=== PATIENT | female | born 1930 | race Caucasian/White ===

== ENCOUNTER → 2016-12-13 | Outpatient (CLI) | payer MEDICARE ==
[2016-12-13 09:17] LABS: BASO # 0.1 K/mm3 (0.0-0.2); BASO % 0.9 % (0.0-1.0); EOS # 0.2 K/mm3 (0.0-0.50); EOS % 2.2 % (0.0-3.0); LARGE UNSTAINED CELL # 0.2 K/mm3 (0.0-0.4); LARGE UNSTAINED CELL % 2.3 % (0.0-4.0); LYMPH # 2.5 K/mm3 (1.5-4.5); MEAN CORPUSCULAR HEMOGLOBIN 30.2 pg (27.0-33.0); MEAN CORPUSCULAR VOLUME 91.4 fl (80.0-96.0); MONO # 0.5 K/mm3 (0.0-0.8); MONO % 6.7 % (0.0-5.0); NEUTROPHILS # 3.3 K/mm3 (1.8-7.7); NEUTROPHILS % 49.8 % (36.0-66.0); PLATELET COUNT, AUTOMATED 250 k/mm3 (150-450); RED CELL DISTRIBUTION WIDTH 13.2 % (11.5-14.5); WHITE BLOOD COUNT 6.6 K/mm3 (4.0-10.0)
[2016-12-13 10:04] LABS: ALBUMIN 3.4 GM/DL (3.2-5.2); ALBUMIN/GLOBULIN RATIO 1.13 (1.00-1.93); BILIRUBIN,TOTAL 0.3 MG/DL (0.2-1.0); CALCIUM LEVEL 9.2 MG/DL (8.8-10.2); CREATININE FOR GFR 1.14 MG/DL (0.55-1.02); GLOMERULAR FILTRATION RATE 48.1 (>32); POTASSIUM SERUM 3.9 MEQ/L (3.5-5.1); TOTAL PROTEIN 6.4 GM/DL (6.4-8.2)
== END ==
LOC: M WUC 08:17
PROVIDERS: ATTEND Family Medicine
DX: I10 Essential (primary) hypertension (principal); E78.2 Mixed hyperlipidemia; F33.1 Major depressive disorder, recurrent, moderate; Z72.0 Tobacco use

== ENCOUNTER → 2018-07-12 | Outpatient (REF) | payer MEDICARE ==
[~2018-07-12] MED LIST: ALB2.5NEB INH; ALBU0.63 INH; ALPR0.5T3 PO; K-TA10TA2 PO; LISI10TA4 PO; MAG400TA PO; PARO20TA3 PO; PARO30TA PO; TRIA37.53 PO; ZOCO40TA PO
== END ==
LOC: M LAB REF 15:24
PROVIDERS: ATTEND Physician Assistant
DX: N39.0 Urinary tract infection, site not specified (principal)

== ENCOUNTER 2018-08-03 20:10 | Emergency (ER) | payer MEDICARE ==
[~2018-08-03] VITALS: Ht 152.4 cm; Wt 59.1 kg
[2018-08-03] MEDS ORDERED: PARO40TA2 (20:21)
[2018-08-03] MEDS ORDERED: POTA1TAB23 (20:21)
[2018-08-03] MEDS ORDERED: LISI-538 (20:21)
[2018-08-03] MEDS ORDERED: SIMV40TA2 (20:21)
[2018-08-03] MEDS ORDERED: MAGN400T (20:21)
[2018-08-03] MEDS ORDERED: ALPRAZolam 0.5 MG TAB PO ONE ×3 (22:00→22:15)
[2018-08-03 22:28] VITALS: BP 171/82
== END 2018-08-03 22:31 | disposition home or self-care (01) ==
LOC: M ED 20:10
DX: F41.9 Anxiety disorder, unspecified (principal); Z76.0 Encounter for issue of repeat prescription; F17.200 Nicotine dependence, unspecified, uncomplicated

== ENCOUNTER → 2018-08-14 | Outpatient (CLI) | payer MEDICARE ==
[~2018-08-14] MED LIST changes: +LISI-538; +MAGN400T; +PARO40TA2; +POTA1TAB23; +SIMV40TA2
[2018-08-14 09:50] LABS: BASO # 0.1 10^3/uL (0.0-0.2); BASO % 0.7 % (0.0-1.0); EOS # 0.1 10^3/uL (0.0-0.50); HEMATOCRIT 43.6 % (36.0-47.0); HEMOGLOBIN 14.5 g/dl (12.0-15.5); LYMPH # 2.3 10^3/uL (1.5-4.5); LYMPH % 32.6 % (24.0-44.0); MEAN CORPUSCULAR HEMOGLOBIN 29.9 pg (27.0-33.0); MEAN CORPUSCULAR HGB CONC 33.3 g/dl (32.0-36.5); MEAN CORPUSCULAR VOLUME 89.9 fl (80.0-96.0); MONO # 0.6 10^3/uL (0.0-0.8); MONO % 8.3 % (0.0-5.0); NEUTROPHILS # 3.9 10^3/uL (1.8-7.7); NEUTROPHILS % 56.1 % (36.0-66.0); PLATELET COUNT, AUTOMATED 244 10^3/uL (150-450); RED BLOOD COUNT 4.85 10^6/uL (4.00-5.40)
[2018-08-14 10:20] LABS: ALBUMIN 3.6 GM/DL (3.2-5.2); BILIRUBIN,TOTAL 0.4 MG/DL (0.2-1.0); CALCIUM LEVEL 9.2 MG/DL (8.8-10.2); CHOLESTEROL RISK RATIO 3.066 (<5); CREATININE FOR GFR 1.05 MG/DL (0.55-1.30); FREE T4 0.98 NG/DL (0.76-1.46); GLOMERULAR FILTRATION RATE 52.8 (>32); MAGNESIUM LEVEL 2.5 MG/DL (1.8-2.4); POTASSIUM SERUM 3.8 MEQ/L (3.5-5.1); THYROID STIMULATING HORMONE 2.7 uIU/ML (0.358-3.740); TOTAL PROTEIN 6.5 GM/DL (6.4-8.2)
== END ==
LOC: M WUC 08:11
PROVIDERS: ATTEND Physician Assistant
DX: I10 Essential (primary) hypertension (principal)

== ENCOUNTER 2019-06-30 16:22 | Inpatient (IN) | payer MEDICARE ==
[~2019-06-30] VITALS: Ht 152.4 cm; Wt 56.0 kg
[~2019-06-30 16:22] MED LIST changes: -LISI-538; +LISI-538 PO; -MAGN400T; +MAGN400T3; -PARO40TA2; +PARO40TA2 PO; -SIMV40TA2; +SIMV40TA20
--- NOTE | 2019-06-30 17:32 | REPVR ---
PROCEDURE INFORMATION: Exam: CT Head Without Contrast Exam date and time: 06/30/2019 5:03 PM Age: 88 years old Clinical history: Injury or trauma; Fall; Initial encounter; Blunt trauma (contusions or hematomas) TECHNIQUE: Imaging protocol: Computed tomography of the head without contrast. Radiation optimization: All CT scans at this facility use at least one of these dose optimization techniques: automated exposure control; mA and/or kV adjustment per patient size (includes targeted exams where dose is matched to clinical indication); or iterative reconstruction. COMPARISON: No relevant prior studies available. FINDINGS: Brain: There is no acute intracranial hemorrhage, cerebral edema, or midline shift. Chronic microvascular ischemic changes are seen in the periventricular white matter. Age-related cerebral and cerebellar volume loss is present. Ventricles: Mild ex vacuo dilation of the lateral and third ventricles is noted. Bones/joints: No acute fracture. Sinuses: There is no acute sinusitis. Mastoid air cells: The mastoid air cells are clear. Orbits: The included orbital structures are unremarkable. Soft tissues: Unremarkable. Vasculature: Atherosclerotic calcifications are seen involving the cavernous carotid arteries. IMPRESSION: 1. No acute intracranial abnormality. 2. Atrophy and chronic deep white matter ischemic change. Electronically signed by: Hiram Renee On 06/30/2019 17:32:41 PM
--- NOTE | 2019-06-30 17:41 | REPVR ---
PROCEDURE INFORMATION: Exam: CT Cervical Spine Without Contrast Exam date and time: 06/30/2019 5:03 PM Age: 88 years old Clinical history: Injury or trauma; Fall; Initial encounter; Blunt trauma TECHNIQUE: Imaging protocol: Computed tomography images of the cervical spine without contrast. Radiation optimization: All CT scans at this facility use at least one of these dose optimization techniques: automated exposure control; mA and/or kV adjustment per patient size (includes targeted exams where dose is matched to clinical indication); or iterative reconstruction. COMPARISON: No relevant prior studies available. FINDINGS: Vertebrae: Bone mineralization is decreased, suggestive of osteopenia. There is no acute fracture. There is minimal retrolisthesis of C2 on C3 and C5 on C6. Minimal anterolisthesis of C4 on C5 and C7 on T1 is also noted. Discs/Spinal canal/Neural foramina: Severe degenerative changes of the cervical spine are present. There is no severe spinal canal stenosis. Multilevel neural foraminal narrowing from uncinate spurring and facet arthropathy is noted. Soft tissues: Unremarkable. Lungs: Lung apices are normal. Vasculature: Atherosclerotic calcifications are present at the carotid bifurcations. IMPRESSION: 1. No acute abnormality. 2. Chronic findings as discussed above. Electronically signed by: Hiram Renee On 06/30/2019 17:40:51 PM
[2019-06-30 17:57] LABS: BASO % 0.2 % (0.0-1.0); EOS % 0.1 % (0.0-3.0); HEMATOCRIT 25.9 % (36.0-47.0); HEMOGLOBIN 7.4 g/dl (12.0-15.5); LYMPH # 1.7 10^3/uL (1.5-5.0); LYMPH % 16.8 % (24.0-44.0); MEAN CORPUSCULAR HEMOGLOBIN 23.8 pg (27.0-33.0); MEAN CORPUSCULAR HGB CONC 28.6 g/dl (32.0-36.5); MEAN CORPUSCULAR VOLUME 83.3 fl (80.0-96.0); MONO # 0.6 10^3/uL (0.0-0.8); MONO % 6.3 % (0.0-5.0); NEUTROPHILS # 7.6 10^3/uL (1.5-8.5); NEUTROPHILS % 76.3 % (36.0-66.0); PLATELET COUNT, AUTOMATED 320 10^3/uL (150-450); RED BLOOD COUNT 3.11 10^6/uL (4.00-5.40); WHITE BLOOD COUNT 9.9 10^3/uL (4.0-10.0)
[2019-06-30 18:24] LABS: BILIRUBIN, URINE MANUAL NEGATIVE (NEGATIVE); GLUCOSE, URINE (UA) MANUAL NEGATIVE (NEGATIVE); KETONE, URINE MANUAL NEGATIVE (NEGATIVE); UROBILINOGEN, URINE MANUAL NORMAL (NORMAL)
[2019-06-30 18:26] LABS: RBC, URINE NONE SEEN /hpf (0-3)
[2019-06-30 18:27] LABS: AMORPHOUS SEDIMENT, URINE MOD AMOUNT (NEGATIVE); BACTERIA, URINE NONE SEEN; HYALINE CAST, URINE NONE SEEN /lpf (0-1); SQUAMOUS EPITHELIAL CELL URINE NONE SEEN /hpf (SMALL AMT)
[2019-06-30 18:28] LABS: ALBUMIN 3.2 GM/DL (3.2-5.2); ALT/SGPT 17 U/L (12-78); BILIRUBIN,DIRECT < 0.1 MG/DL (0.0-0.2); BILIRUBIN,TOTAL 0.3 MG/DL (0.2-1.0); BLOOD UREA NITROGEN 17 MG/DL (7-18); CALCIUM LEVEL 9.4 MG/DL (8.8-10.2); CARBON DIOXIDE LEVEL 28 MEQ/L (21-32); CHLORIDE LEVEL 110 MEQ/L (98-107); CK-MB VALUE MASS 2.5 NG/ML (<3.6); CPK CREATINE PHOSPHOKINASE 494 U/L (26-192); CREATININE FOR GFR 0.89 MG/DL (0.55-1.30); ETHYL ALCOHOL (ETHANOL) < 0.003 % (0.000-0.010); GLOMERULAR FILTRATION RATE > 60.0 (>32); GLUCOSE, FASTING 92 MG/DL (70-100); MB/CK RELATIVE INDEX 0.51 (< OR =4); POTASSIUM SERUM 3.8 MEQ/L (3.5-5.1); SODIUM LEVEL 144 MEQ/L (136-145); THYROID STIMULATING HORMONE 0.514 uIU/ML (0.358-3.740); TOTAL PROTEIN 6.2 GM/DL (6.4-8.2); TROPONIN I < 0.02 NG/ML (< 0.10)
--- NOTE | 2019-06-30 18:29 | REP ---
Chest x-ray: Two views. History: Trauma. Comparison study: July 21, 2018. Findings: EKG monitoring electrodes overlie the chest. The heart is not enlarged. Aorta is calcific and somewhat tortuous as before. Pleural angles are sharp. There is no evidence of pneumothorax or hydrothorax. Mediastinum is not widened. No rib or other fracture is appreciated. There is a granulomatous calcification in the left superior perihilar region unchanged. Impression: No active disease. Electronically Signed by Artem Gerard MD 06/30/2019 06:33 P
[2019-06-30] MEDS ORDERED: ASPI-261 PO (19:12)
--- NOTE | 2019-06-30 19:25 | HPEPDOC ---
[facility] Medical History & Physical Date of Admission Jun 30, 2019 Date of Service: Jun 30, 2019 Primary Care Physician: ESTEBAN HUTCHISON DO Attending Physician: ADELINE RYAN MD History and Physical TIME OF SERVICE: 9:10 PM CHIEF COMPLAINT: Altered mental status/fall HISTORY OF PRESENT ILLNESS: The patient is a poor historian. The majority of history was obtained from ER st [facility]. This is an 81-year-old female who was brought to the hospital by her granddaughter. Apparently a neighbor found the patient lying on the floor; the patient has a history of frequent falls. The patient couldn't remember exactly what happened. When asked how she is feeling she stated "right now I'm tired". She admits to having difficulties with walking for "for a day or so" and having to walk on her knees. Per discussion with the ER nurse taking care of her the patient is on alprazolam and based on the timing of the most recent prescription, the he should have more pills left in her bottle than she currently does. REVIEW OF SYSTEMS: Unable to obtain PAST MEDICAL/ SURGICAL HISTORY: Chronic hypertension. Anxiety/depression. Dyslipidemia. Status post left knee partial medial and lateral meniscectomy and excision of suprapatellar plica SOCIAL HISTORY: She reports smoking every day. She lives alone FAMILY HISTORY: She denies having family history of diabetes, cancer, or lung problems ALLERGIES: Please see below. HOME MEDICATIONS: Please see below. PHYSICAL EXAMINATION: VITAL SIGNS: Please see below. GEN: Slim build/ well developed/ NAD INTEGUMENT: not flushed/ not jaundice HEENT: normocephalic / atraumatic / mucus membranes dry/ sclera anicteric CVS: RRR/NMRG/ / radial pulses intact LUNGS: lungs are clear to auscultation bilaterally on room air ABDOMEN: bowel sounds are present / the abdomen is soft & not tender with palpation MSK/EXTREMITIES: range of motion intact in all 4 extremities NEURO: CN 2-12 are grossly intact / speech is not dysarthric PSYCH: alert and oriented / able to understand and follow most commands LABORATORY DATA: See below. IMAGING: CT of the head " IMPRESSION: 1. No acute intracranial abnormality. 2. Atrophy and chronic deep white matter ischemic change. CT cervical spine without contrast "IMPRESSION: 1. No acute abnormality. 2. Chronic findings as discussed above. " Chest x-ray "Impression: No active disease." ASSESSMENT: Ms. Rodriguez is an 88-year-old with a past medical history of chronic hypertension, anxiety, depression, and dyslipidemia will be admitted for evaluation of encephalopathy, syncope and acute anemia. PLAN: 1. Encephalopathy May be due to reaction to acute anemia vs adverse reaction to excessive alpraz olam vs hypertensive encephalopathy Plan: Admit to medical floor/ neurochecks every 8 hours /treat anemia and uncontrolled hypertension/hold alprazolam/ daytime team may consider ordering MRI of the brain, B12, B1, and TSH . If her mental status doesn't improve within the next day or so 2 Normocytic hypochromic anemia. Her baseline hemoglobin is around 13, today it has dropped to 7.4 The ER attending reported that Hemoccult was negative and ordered 2 units of PRBCs Plan: f/u hemoglobin after transfusion/follow up repeat stool occult, reticulocyte count, iron panel with ferritin, LDH and Haptoglobin 3. Falls/syncope? Possibly due to acute anemia vs arrhythmia vs TIA The troponin, UA, CT head and serum ethanol are unrevealing. Per discussion with nursing staff telemetry showed bigeminy and PVCs Plan: Telemetry / fall precautions/ f/u orthostats, BNP & stool occult / PT consult 4. Bigeminy and trigeminy. Plan: follow-up repeat EKG/cardiology consult for evaluation of bigeminy and t rigeminy 5. Uncontrolled hypertension. The patient's blood pressure was as high as 185/84 Plan: Continue lisinopril in the morning and add amlodipine at night 6. Elevated CPK, possibly due to mild rhabdo. UA is positive for blood Plan: Will not give additional IV fluids right now because her blood pressures elevated/trend CPK 7. Anxiety/depression. Plan: Hold alprazolam . Continue paroxetine 8. Tobacco abuse. Plan: Nicotine patch/smoking cessation education DVT prophylaxis with SCDs. Disposition likely home versus SNF placement after 1-2 midnight stay Vital Signs Vital Signs Date Time Temp Pulse Resp B/P (MAP) Pulse Ox O2 Delivery O2 Flow Rate FiO2 06/30/19 18:35 06/30/19 16:22 96.0 89 18 97 Room Air Laboratory Data Labs 24H Laboratory Tests 2 06/30/19 17:36: Immature Granulocyte % (Auto) 0.3, Neutrophils (%) (Auto) 76.3H, Lymphocytes (%) (Auto) 16.8L, Monocytes (%) (Auto) 6.3H, Eosinophils (%) (Auto) 0.1, Basophils (%) (Auto) 0.2, Neutrophils # (Auto) 7.6, Lymphocytes # (Auto) 1.7, Monocytes # (Auto) 0.6, Eosinophils # (Auto) 0.0, Basophils # (Auto) 0.0, Nucleated Red Blood Cells % (auto) 0.0, Anion Gap 6L, Glomerular Filtration Rate > 60.0, Calcium Level 9.4, Total Bilirubin 0.3, Direct Bilirubin < 0.1, Aspartate Amino Transf (AST/SGOT) 18, Alanine Aminotransferase (ALT/SGPT) 17, Alkaline Phosphatase 78, Total Creatine Kinase 494H, Creatine Kinase MB 2.5, Creatine Kinase MB Relative Index 0.51, Troponin I < 0.02, Total Protein 6.2L, Albumin 3.2, Albumin/Globulin Ratio 1.07, Thyroid Stimulating Hormone (TSH) 0.514, Ethyl Alcohol Level < 0.003 06/30/19 18:00: Urine Color (YULISSA) YELLOW, Urine Appearance (YULISSA) HAZYH, Urine pH (YULISSA) 5.0, Urine Specific [place] (YULISSA) 1.025, Bedside Urine Glucose (UA) NEGATIVE, Bedside Urine Ketones (LAB) NEGATIVE, Bedside Urine Blood POSITIVEH, Bedside Urine Nitrite (LAB) NEGATIVE, Bedside Urine Bilirubin (LAB) NEGATIVE, Bedside Urine Urobilinogen (LAB) NORMAL, Bedside Urine Leukocyte Esterase (L NEGATIVE, Urine Sediment Examination PERFORMED, Urine RBC NONE SEEN, Urine WBC NONE SEEN, Urine Squamous Epithelial Cells NONE SEEN, Urine Amorphous Sediment MOD AMOUNTH, Urine Bacteria NONE SEEN, Urine Hyaline Casts NONE SEEN 06/30/19 19:02: CBC/BMP Laboratory Tests 06/30/19 17:36 Home Medications Scheduled Ascorbic Acid (Vitamin C) 500 Mg Capsule, 1 CAP PO DAILY Cyanocobalamin (Vitamin B-12) (Vitamin B-12) 100 Mcg Tablet, 1 TAB PO DAILY Ferrous Sulfate (Ferrous Sulfate) 325 Mg Tablet.dr, 1 TAB PO DAILY Lisinopril (Lisinopril) 20 Mg Tab, 20 MG PO DAILY Nicotine (Nicotine Patch) 14 Mg Patch.td24, 1 PATCH TD QPM Pantoprazole Sodium (Pantoprazole Sodium) 40 Mg Tablet.dr, 40 MG PO DAILY Paroxetine HCl (Paroxetine HCl) 40 Mg Tab, 40 MG PO DAILY Prednisone (Prednisone) 10 Mg Tablet, 10 MG PO TAPER Take 4 tabs daily x 3 days, then 3 tabs daily x 3 days, then 2 tabs daily x 3 days, then 1 tab daily x 3 days and stop Scheduled PRN Albuterol Sulfate (Albuterol Sulfate) 2.5 Mg/0.5 Ml Neb, 2.5 MG INH Q4H PRN for SHORTNESS OF BREATH Alprazolam (Alprazolam) 0.5 Mg Tab, 0.5 MG PO TID PRN for ANXIETY Aspirin (Aspirin) 325 Mg Tablet, 650 MG PO DAILY PRN for PAIN Allergies Coded Allergies: No Known Allergies (Unverified , 06/30/19) A-FIB/CHADSVASC A-FIB History Current/History of A-Fib/PAF?: No Current PO Anticoag Therapy: No ADELINE RYAN MD Jun 30, 2019 19:25
[2019-06-30 19:45] LABS: PROTHROMBIN TIME 12.9 SECONDS (11.8-14.0)
[2019-06-30 19:46] LABS: PARTIAL THROMBOPLASTIN TIME 32.1 SECONDS (25.0-38.4)
[2019-06-30] MEDS ORDERED: ALBUTEROL SULFATE 2.5 MG/0.5 ML INH NEB SOLN INH PRN (21:30)
[2019-06-30] MEDS ORDERED: ASPIRIN 325 MG TAB PO PRN (21:30)
[2019-06-30 21:50] VITALS: BP 171/83
[2019-06-30] MEDS: NICOTINE 14 MG/24 HR TRANSDERMAL TD SCH (22:26)
[2019-06-30 23:05] LABS: MAGNESIUM LEVEL 2.1 MG/DL (1.8-2.4)
[2019-06-30 23:40] VITALS: BP 170/80
[2019-07-01] VITALS (16 sets, daily range): BP systolic 110–172; BP diastolic 64–87
[2019-07-01 02:24] LABS: FERRITIN 12 NG/ML (8-252); IRON (FE) 14 UG/DL (50-170); LDH LACTATE DEHYDROGENASE 256 U/L (84-246); PERCENT SATURATION 2.9 % (13.2-45.0); TOTAL IRON BINDING CAPACITY 484 UG/DL (250-450)
--- NOTE | 2019-07-01 08:11 | ECGEPIP ---
[facility] - ED Test Date: 2019-06-30 Pat Name: DARIO OLMOS Department: Room: [place] [address] Gender: Female Supervisor Instrument Maintenance: hilario : 1930 Requested By: DEE DEE Juarez Order Number: [id number] Reading MD: Osvaldo Alford Measurements Intervals [place] Rate: 79 P: 44 FL: 142 QRS: -16 QRSD: 91 T: 45 QT: 379 QTc: 435 Interpretive Statements SINUS RHYTHM WITH OCCASIONAL VENTRICULAR PREMATURE COMPLEXES POSSIBLE LEFT ATRIAL ENLARGEMENT POSSIBLE LEFT VENTRICULAR HYPERTROPHY POSSIBLE SEPTAL MYOCARDIAL INFARCTION, OF INDETERMINATE AGE NO PRIORS FOR COMPARISON Electronically Signed on 07-01-2019 8:11:37 EST by Osvaldo Alford
[2019-07-01 08:31] LABS: HEMATOCRIT 31.7 % (36.0-47.0); HEMOGLOBIN 9.8 g/dl (12.0-15.5); MEAN CORPUSCULAR HEMOGLOBIN 25.5 pg (27.0-33.0); MEAN CORPUSCULAR HGB CONC 30.9 g/dl (32.0-36.5); MEAN CORPUSCULAR VOLUME 82.6 fl (80.0-96.0); PLATELET COUNT, AUTOMATED 270 10^3/uL (150-450); RED BLOOD COUNT 3.84 10^6/uL (4.00-5.40); WHITE BLOOD COUNT 6.6 10^3/uL (4.0-10.0)
[2019-07-01 08:46] LABS: BLOOD UREA NITROGEN 16 MG/DL (7-18); CALCIUM LEVEL 8.6 MG/DL (8.8-10.2); CARBON DIOXIDE LEVEL 28 MEQ/L (21-32); CHLORIDE LEVEL 112 MEQ/L (98-107); CREATININE FOR GFR 0.88 MG/DL (0.55-1.30); GLOMERULAR FILTRATION RATE > 60.0 (>32); GLUCOSE, FASTING 91 MG/DL (70-100); POTASSIUM SERUM 3.3 MEQ/L (3.5-5.1); SODIUM LEVEL 145 MEQ/L (136-145)
[2019-07-01] MEDS ORDERED: LEVALBUTEROL 1.25 MG/0.5 ML CONCENTRATE NEB INH PRN (09:00)
[2019-07-01] MEDS ORDERED: IPRATROPIUM 0.02% SOLN 0.5MG/2.5 ML NEB INH PRN (09:00)
[2019-07-01 09:30] LABS: FERRITIN 7 NG/ML (8-252); IRON (FE) 95 UG/DL (50-170); PERCENT SATURATION 20.8 % (13.2-45.0); TOTAL IRON BINDING CAPACITY 456 UG/DL (250-450)
[2019-07-01] MEDS: methylPREDNISolone INJ 125 MG/2 ML VIAL (J2930) IV SCH ×2 (09:30→17:23)
[2019-07-01] MEDS: POTASSIUM CHLORIDE 10 MEQ SR TABLET PO SCH ×2 (09:30→20:52)
[2019-07-01] MEDS: PARoxetine 20 MG TAB PO SCH (09:31)
[2019-07-01] MEDS: lisinopriL 20 MG TAB PO SCH (09:31)
[2019-07-01] MEDS ORDERED: NS 500 ML IV ONE (10:00)
[2019-07-01] MEDS: LEVALBUTEROL 1.25 MG/0.5 ML CONCENTRATE NEB INH SCH ×4 (11:20→20:22)
[2019-07-01] MEDS: IPRATROPIUM 0.02% SOLN 0.5MG/2.5 ML NEB INH SCH ×3 (12:00→20:21)
[2019-07-01] MEDS: PANTOPRAZOLE 40MG TAB (PROTONIX) PO SCH (13:00)
[2019-07-01] MEDS ORDERED: POTASSIUM CHLORIDE 10 MEQ SR TABLET PO ONE (15:00)
--- NOTE | 2019-07-01 15:38 | IPN ---
DATE: 07/01/2019 The patient denies any bright red blood per rectum, melena, black tarry stools. She has been transfused 2 units red blood cells from admission of 7.4 to current hemoglobin of 9.8. She remains orthostatic but denies any chest pain, pressure, tightness, lightheadedness, dizziness or near syncope. Afebrile overnight. No complaints of shortness of breath. PHYSICAL EXAMINATION: VITAL SIGNS: Temperature 98, pulse 79, respiratory rate 18, blood pressure 135/65, 95% on 2 liters nasal cannula. GENERAL: The patient is awake, alert, oriented to person, answering questions appropriately. The patient does have a history of chronic hypertension, but appears to be well controlled. LUNGS: Diminished breath sounds with bilateral wheezing. The patient is not in tripod positioning. No conversational dyspnea. HEART: S1, S2. Sinus rhythm. No murmurs, rubs or gallops. ABDOMEN: Soft, nontender, nondistended. Positive bowel sounds. EXTREMITIES: No cyanosis or clubbing. LABORATORY DATA: White count 6.6, hemoglobin 9.8, hematocrit 31, platelet count 270. Sodium 145, potassium 3.3, chloride 112. ASSESSMENT AND PLAN: This is an 88-year-old female who came from home after the patient was found by a neighbor on the floor with history of recurrent falls, complaining of feeling tired. The patient was found to be anemic with no active gastrointestinal bleed. CURRENT ISSUES: 1. Symptomatic anemia with near syncopal episode at home. The patient has been transfused 2 units of red blood cells, awaiting hemoccult stool. Monitor for any active bleeding. 2. Hypokalemia. Supplemented potassium. 3. Syncope secondary to symptomatic anemia. No complaints of palpitations or history of arrhythmias in the past. 4. Abnormal electrocardiogram (EKG). Outpatient followup. Continue on telemetry. Monitor the patient's electrolytes. Check a 2-D dimensional echocardiogram due to recent syncope. 5. Recurrent falls. Check vitamin D. [facility]
--- NOTE | 2019-07-01 16:49 | ECGEPIP ---
[facility] Test Date: 2019-07-01 Pat Name: DARIO OLMOS Department: Room: [place] [address] Gender: Female Manager Beauty: ALEXANDER : 1930 Requested By: ADELINE RYAN Order Number: [id number] Reading MD: Ceasar Carpio Measurements Intervals [place] Rate: 85 P: 60 [place]: 141 QRS: -14 QRSD: 88 T: 40 QT: 301 QTc: 359 Interpretive Statements SINUS RHYTHM WITH OCCASIONAL VENTRICULAR PREMATURE COMPLEXES POSSIBLE LEFT ATRIAL ENLARGEMENT SEPTAL MYOCARDIAL INFARCTION, PROBABLY OLD Electronically Signed on 07-01-2019 16:49:35 EST by Ceasar Carpio
[2019-07-01 18:54] LABS: HEMATOCRIT 37.1 % (36.0-47.0); HEMOGLOBIN 10.8 g/dl (12.0-15.5)
[2019-07-01 19:12] LABS: MAGNESIUM LEVEL 1.9 MG/DL (1.8-2.4)
[2019-07-01 19:27] LABS: TOTAL 25(OH) VITAMIN D 32.4 NG/ML (30.0-100.0)
[2019-07-01 19:28] LABS: FOLATE 9.4 NG/ML (>5.4)
[2019-07-01] MEDS: NICOTINE 14 MG/24 HR TRANSDERMAL TD SCH (20:52)
[2019-07-02] MEDS: IPRATROPIUM 0.02% SOLN 0.5MG/2.5 ML NEB INH SCH ×6 (00:10→20:21)
[2019-07-02] MEDS: LEVALBUTEROL 1.25 MG/0.5 ML CONCENTRATE NEB INH SCH ×6 (00:10→20:21)
[2019-07-02] MEDS: methylPREDNISolone INJ 125 MG/2 ML VIAL (J2930) IV SCH (01:15)
[2019-07-02 06:00] VITALS: BP_SYST 126; BP_SYST 129; BP_SYST 130; BP_DIAS 51; BP_DIAS 54; BP_DIAS 56
[2019-07-02 06:21] LABS: HEMATOCRIT 31.4 % (36.0-47.0); HEMOGLOBIN 9.3 g/dl (12.0-15.5)
[2019-07-02 06:50] LABS: BLOOD UREA NITROGEN 19 MG/DL (7-18); CALCIUM LEVEL 9.1 MG/DL (8.8-10.2); CARBON DIOXIDE LEVEL 25 MEQ/L (21-32); CHLORIDE LEVEL 111 MEQ/L (98-107); CREATININE FOR GFR 0.91 MG/DL (0.55-1.30); GLOMERULAR FILTRATION RATE > 60.0 (>32); GLUCOSE, FASTING 143 MG/DL (70-100); POTASSIUM SERUM 3.9 MEQ/L (3.5-5.1); SODIUM LEVEL 143 MEQ/L (136-145)
[2019-07-02] MEDS ORDERED: PANT40TA3 PO (08:11)
[2019-07-02] MEDS ORDERED: NICO14PA TD (08:11)
[2019-07-02] MEDS ORDERED: PRED10TA2 PO (08:11)
[2019-07-02 09:15] VITALS: BP 124/82
[2019-07-02 09:50] VITALS: BP 122/62
[2019-07-02] MEDS: POTASSIUM CHLORIDE 10 MEQ SR TABLET PO SCH ×2 (11:00→20:00)
[2019-07-02] MEDS: PANTOPRAZOLE 40MG TAB (PROTONIX) PO SCH (11:03)
[2019-07-02] MEDS: lisinopriL 20 MG TAB PO SCH (11:05)
[2019-07-02] MEDS: PARoxetine 20 MG TAB PO SCH (11:06)
--- NOTE | 2019-07-02 12:24 | IPN ---
DATE: 07/02/2019 The patient's shortness of breath is much improved. Denies any chest pain, pressure, tightness, lightheadedness or dizziness. No bright red blood per rectum, melena or black tarry stools. The patient has not had a bowel movement. She has not passed a home safety physical therapy (PT) evaluation and would like to go home anyway. The family has been contacted and they agree that the patient is not safe for hospital discharge today due to her mobility issues. Temperature 98.5, pulse 100, respiratory rate 20, blood pressure 122/62, 92% on 2 liters nasal cannula. Generally awake, alert, oriented to herself, answering questions appropriately. The patient appears to be tremulous but no complaints of chills. Lungs are diminished but clear to auscultation. No wheezing, rales or rhonchi. Heart: S1, S2. Sinus rhythm. No murmurs, rubs or gallops. Abdomen soft, nontender, nondistended. Extremities: No cyanosis, clubbing or any pitting edema. LABORATORY DATA: 07/02/2019 hemoglobin 9.3, hematocrit 31, sodium 143, potassium 3.9, chloride 111, bicarbonate 25, BUN 19, creatinine 0.9, glucose 143. ASSESSMENT AND PLAN: This is an 88-year-old, DO NOT RESUSCITATE, DO NOT INTUBATE female from home who was found by a neighbor on the floor complaining of feeling tired and had a fall. The patient was found to be anemic with no active gastrointestinal (GI) bleed. 1. Symptomatic anemia most likely secondary to chronic iron deficiency with near syncopal episode at home. The patient was transfused 2 units of red blood cell (RBC) transfusion with no overt GI bleed. Currently on proton pump inhibitor (PPI). Hemoglobin/hematocrit (H/H) appeared to be stable. Low potassium. 2. Hypokalemia. Supplemented currently. 3. Syncope secondary to symptomatic anemia. No prior history of arrhythmias or palpitations in the past. 4. Abnormal EKG. Electrolytes are optimized. EKG has been reviewed with occasional premature ventricular contraction (PVC), questionable septal myocardial infarction (NV) probably old. DISPOSITION: Not stable for discharge. Await PT clearance. [facility]
[2019-07-02 14:00] VITALS: BP 145/74
[2019-07-02 18:00] VITALS: BP 177/72
[2019-07-02 18:20] LABS: HEMATOCRIT 33.5 % (36.0-47.0); HEMOGLOBIN 9.9 g/dl (12.0-15.5)
[2019-07-02 18:47] VITALS: BP 163/75
[2019-07-02] MEDS: NICOTINE 14 MG/24 HR TRANSDERMAL TD SCH (19:59)
--- NOTE | 2019-07-02 22:40 | ECHO ---
DATE OF PROCEDURE: 07/02/2019 Date of : 1930 Age: 88 REFERRING PHYSICIAN: Augusta Pennington MD PATIENT LOCATION: Room 4205 REASON FOR ECHOCARDIOGRAM: Syncope. 2D MEASUREMENTS: IVS: 1.1 cm LV: 5.2 cm LVPW: 1.2 cm LA: 3.7 cm Aorta: 3.0 cm RV: 2.8 cm IVC: 1.2 cm DOPPLER MEASUREMENTS: Peak velocity across the aortic valve: 1.6 m/s Peak velocity across the LVOT: 0.7 m/s Mitral E: 1.1, Mitral A: 1.2 with a ratio of 0.9 Maximum tricuspid valve velocity: 3.5 m/s 2D COMMENTS: 1. Normal left ventricular size, wall thickness, and normal global left ventricular systolic function. The estimated left ventricular systolic ejection fraction is 60-65%. 2. Normal left atrium. Normal right atrium and right ventricle noted in limited views. 3. The atrial septum appeared to be normal without evidence of defect or shunt. 4. Normal aortic root. 5. Trace to small pericardial effusion noted around the heart, no evidence of cardiac tamponade. 6. Mildly calcified aortic valve with normal leaflet excursion. Mildly calcified mitral annulus with normal anterior mitral valve leaflet motion. Normal tricuspid valve and pulmonic valve. The proximal pulmonary artery branches were not well visualized. 7. The inferior vena cava was normal in size, central venous pressure is most likely normal. DOPPLER: It detects moderate mitral regurgitation and mild to moderate tricuspid regurgitation. The calculated pulmonary artery systolic pressure varies between 40-50 mmHg. Abnormal relaxation pattern was noted across the mitral valve leaflets as well as the mitral valve annulus consistent with features of grade 1 left ventricular diastolic dysfunction. IMPRESSION 1. Normal global left ventricular systolic function. There are some features of grade 1 left ventricular diastolic dysfunction manifested by abnormal relaxation. 2. Aortic valve sclerosis with trivial aortic stenosis but no aortic regurgitation. 3. Mitral annulus calcification with moderate mitral regurgitation. 4. Mild to moderate tricuspid regurgitation with moderate pulmonary hypertension. 5. Trace to small pericardial effusion, no evidence of cardiac tamponade.
[2019-07-03] MEDS: LEVALBUTEROL 1.25 MG/0.5 ML CONCENTRATE NEB INH SCH ×4 (04:00→11:17)
[2019-07-03] MEDS: IPRATROPIUM 0.02% SOLN 0.5MG/2.5 ML NEB INH SCH ×4 (04:00→11:17)
[2019-07-03 06:00] VITALS: BP 133/89
[2019-07-03 06:14] LABS: HEMATOCRIT 34.4 % (36.0-47.0); HEMOGLOBIN 10.5 g/dl (12.0-15.5)
[2019-07-03] MEDS ORDERED: MOM 30ML SUSPENSION UDC PO PRN (08:00)
[2019-07-03] MEDS ORDERED: MIRALAX *UNIT DOSE* 17GM PACKET PO SCH (09:00)
[2019-07-03] MEDS ORDERED: SENOKOT S TAB PO SCH (09:00)
[2019-07-03 09:15] VITALS: BP 138/78
[2019-07-03] MEDS: POTASSIUM CHLORIDE 10 MEQ SR TABLET PO SCH (10:25)
[2019-07-03] MEDS: PARoxetine 20 MG TAB PO SCH (10:25)
[2019-07-03 10:26] VITALS: BP 138/78
[2019-07-03] MEDS: lisinopriL 20 MG TAB PO SCH (10:26)
[2019-07-03] MEDS: PANTOPRAZOLE 40MG TAB (PROTONIX) PO SCH (10:27)
[2019-07-03] MEDS ORDERED: VITA500C24 PO (12:21)
[2019-07-03] MEDS ORDERED: FERR325T3 PO (12:21)
[2019-07-03] MEDS ORDERED: B-12100T2 PO (12:26)
[2019-07-03 14:00] VITALS: BP 135/82
--- NOTE | 2019-07-03 19:52 | DSES ---
DATE OF ADMISSION: 06/30/2019 DATE OF DISCHARGE: 07/03/2019 PRIMARY DISCHARGE DIAGNOSES: 1. Syncope. 2. Symptomatic anemia 3. Chronic obstructive pulmonary disease exacerbation. 4. Hypokalemia. 5. Iron deficiency anemia. 6. Mild to moderate tricuspid regurgitation with moderate pulmonary hypertension. 7. Trivial aortic stenosis, moderate mitral regurgitation. 8. Grade 1 left ventricular diastolic dysfunction. 9. B12 deficiency. 10. Active tobacco use. Tobacco cessation counseling has been provided. DISCHARGE MEDICATIONS: - prednisone taper - albuterol inhaled every 4 as needed - alprazolam 0.5 three times a day as needed - aspirin 650 daily as needed for pain - lisinopril 20 daily - paroxetine 40 daily - Protonix 40 daily - nicotine patch 14 mg daily - ferrous sulfate 325 daily - vitamin C 500 daily PROCEDURES DURING THIS ADMISSION: None. TRANSFUSIONS: Two units blood transfusion. HOSPITAL COURSE: This is an 88-year-old female who was found on the ground by a neighbor, brought to the hospital by her granddaughter. Patient could not recall what happened but complained of feeling very tired, having difficulty ambulating for a day or so. In the emergency room (ER) she was found to be severely anemic with hemoglobin of 7.4., hematocrit of 25.9. Blood pressure was stable at 173/79. CT of the head 06/30/2019 showed no acute intracranial abnormality. Patient denies bright red blood per rectum, melena, black tarry stools. Does not remember any previous colonoscopies. Did not want any workup. She was transfused 2 units of blood with subsequent improvement, a hemoglobin of 9.8, which was well maintained the entire admission, to a discharge hemoglobin of 10.5, hematocrit of 34.4. Patient's balance was poor, and per physical therapy she was not safe for hospital discharge on July 02. Patient was kept in the hospital until July 03, when she was cleared by physical therapy. Patient did not have any bowel movements during this admission. Refused any bowel regimen until day of discharge. She had episodes of low potassium, which were supplemented. For evaluation of syncopal episode, CT cervical spine showed no neck injuries. Chronic changes are noted. Echocardiogram showed trivial aortic stenosis, moderate mitral regurgitation, and moderate tricuspid regurgitation. Ejection fraction 60-65%. Patient is discharged in stable condition. PHYSICAL EXAMINATION: Temperature 97.6, pulse 70, respiratory rate 24, blood pressure 138/78, 94% on room air. GENERAL: Awake, alert, oriented to person and place. Disoriented to time. Anicteric sclerae. No jaundice. No pallor. No cervical lymphadenopathy, thyromegaly, or jugular venous distention (JVD). Dry mucous membranes. LUNGS: Clear to auscultation. No wheezes or rales. HEART: S1, S2, sinus rhythm. Systolic ejection murmur at the left lower sternal border. ABDOMEN: Soft, nontender, nondistended. Positive bowel sounds. EXTREMITIES: No clubbing, cyanosis, or any pitting edema. LABORATORY DATA: On discharge, white count 6.6, hemoglobin 10.5, hemoglobin 34.4, platelet count 270. Sodium 143, potassium 3.9, chloride 111, bicarbonate 25, BUN 19, creatinine 0.91, glucose 143. Total CK 301. B12 of 119. Vitamin D 32.4. Folate 9.4. IMAGING STUDIES: On 06/30/2019, CT head: No acute intracranial pathology. Chest x-ray: No active disease. CT cervical spine: No acute abnormality. TIME SPENT ON DISCHARGE: 30 minutes. [facility]
== END 2019-07-03 17:01 | disposition home health service (06) | DRG 812 ==
LOC: M ED 16:22 → M ED INP 19:21 → M MSPAV 21:50
PROVIDERS: ADMIT Internal Medicine; ATTEND General Practice
PROC: 30233N1 Transfusion of Nonautologous Red Blood Cells into Peripheral Vein, Percutaneous Approach (ICD-10-PCS; principal; 2019-07-01)
DX: D50.9 Iron deficiency anemia, unspecified (principal); J44.1 Chronic obstructive pulmonary disease with (acute) exacerbation; G93.40 Encephalopathy, unspecified; D59.4 Other nonautoimmune hemolytic anemias; R29.6 Repeated falls; I11.9 Hypertensive heart disease without heart failure; F32.9 Major depressive disorder, single episode, unspecified; F41.9 Anxiety disorder, unspecified; E78.5 Hyperlipidemia, unspecified; F17.210 Nicotine dependence, cigarettes, uncomplicated; R55 Syncope and collapse; E87.6 Hypokalemia; I27.20 Pulmonary hypertension, unspecified; I08.3 Combined rheumatic disorders of mitral, aortic and tricuspid valves; E53.8 Deficiency of other specified B group vitamins

== ENCOUNTER 2019-07-16 20:10 | Emergency (ER) | payer MEDICARE ==
[~2019-07-16] VITALS: Ht 152.4 cm; Wt 56.8 kg
[~2019-07-16 20:10] MED LIST changes: +ASPI-261 PO; +B-12100T2 PO; +FERR325T3 PO; +NICO14PA TD; +PANT40TA3 PO; +PRED10TA2 PO; +VITA500C24 PO
[2019-07-16] MEDS ORDERED: traMADol 50 MG TAB PO ONE (23:00)
[2019-07-16 23:56] LABS: BASO % 0.2 % (0.0-1.0); EOS % 0.2 % (0.0-3.0); HEMATOCRIT 39.3 % (36.0-47.0); HEMOGLOBIN 11.6 g/dl (12.0-15.5); LYMPH % 5.5 % (24.0-44.0); MEAN CORPUSCULAR HEMOGLOBIN 24.5 pg (27.0-33.0); MEAN CORPUSCULAR HGB CONC 29.5 g/dl (32.0-36.5); MEAN CORPUSCULAR VOLUME 82.9 fl (80.0-96.0); MONO # 1.1 10^3/uL (0.0-0.8); MONO % 6.2 % (0.0-5.0); NEUTROPHILS # 15.7 10^3/uL (1.5-8.5); NEUTROPHILS % 87.4 % (36.0-66.0); PLATELET COUNT, AUTOMATED 434 10^3/uL (150-450); RED BLOOD COUNT 4.74 10^6/uL (4.00-5.40); WHITE BLOOD COUNT 17.9 10^3/uL (4.0-10.0)
--- NOTE | 2019-07-17 00:06 | REPVR ---
PROCEDURE INFORMATION: Exam: CT Abdomen And Pelvis Without Contrast Exam date and time: 07/16/2019 10:52 PM Age: 88 years old Clinical indication: Abdominal pain; Localized; Lower; Additional info: Lbp TECHNIQUE: Imaging protocol: Computed tomography of the abdomen and pelvis without contrast. Radiation optimization: All CT scans at this facility use at least one of these dose optimization techniques: automated exposure control; mA and/or kV adjustment per patient size (includes targeted exams where dose is matched to clinical indication); or iterative reconstruction. COMPARISON: CR Hip, 1 view 07/21/2018 4:50 PM FINDINGS: Lungs: Minimal bibasilar interstitial prominence and fibro-atelectatic change. There is question of minimal left lower lobe infiltrate. Mediastinum: Moderate hiatal hernia. Liver: Normal. No mass. Gallbladder and bile ducts: There are several small gallstones in the gallbladder. Pancreas: Normal. No ductal dilation. Spleen: Normal. No splenomegaly. Adrenals: Normal. No mass. Kidneys and ureters: There are bilateral renal cysts measuring up to 2.6 cm on the right. Stomach and bowel: There is colonic diverticulosis without evidence of diverticulitis. Appendix: There are no changes of appendicitis. A normal appendix is not seen. Intraperitoneal space: Unremarkable. No free air. No significant fluid collection. Vasculature: There is moderate atherosclerotic calcification of the abdominal aorta with extension into the iliac arteries. Lymph nodes: Unremarkable. No enlarged lymph nodes. Bladder: The urinary bladder is decompressed but appears grossly normal. Reproductive: Status post hysterectomy. Bones/joints: Unremarkable. No acute fracture. There are degenerative disc changes of the lumbar spine with facet arthropathy. Soft tissues: Unremarkable. IMPRESSION: 1. Moderate hiatal hernia. 2. Minimal bibasilar interstitial prominence and fibro-atelectatic change and question of minimal left lower lobe infiltrate. 3. Cholelithiasis with several small gallstones. 4. Colonic diverticulosis without diverticulitis. 5. Status post hysterectomy. 6. Degenerative disc changes and facet arthropathy of the lumbar spine. Electronically signed by: Juan Carlos Myles On 07/17/2019 00:06:25 AM
--- NOTE | 2019-07-17 00:15 | REPVR ---
PROCEDURE INFORMATION: Exam: CT Lumbar Spine Without Contrast Exam date and time: 07/16/2019 10:52 PM Age: 88 years old Clinical indication: Low back pain; Additional info: Lbp TECHNIQUE: Imaging protocol: Computed tomography images of the lumbar spine without contrast. Radiation optimization: All CT scans at this facility use at least one of these dose optimization techniques: automated exposure control; mA and/or kV adjustment per patient size (includes targeted exams where dose is matched to clinical indication); or iterative reconstruction. COMPARISON: No relevant prior studies available. FINDINGS: Vertebrae: Minimal dextroscoliosis of L4 and levoscoliosis at L1. L1-L2: Degenerative vacuum phenomenon with minimal diffuse bulging disc and preservation of posterior concavity. No spinal or foraminal stenosis. L2-L3: Moderate interspace narrowing with vacuum phenomenon and slight retrolisthesis and minimal diffuse bulge and minimal facet arthropathy. No significant spinal stenosis. There is borderline right neural foraminal stenosis. L3-L4: Slight interspace narrowing with slight retrolisthesis and minimal diffuse bulge with loss of posterior concavity. There is minimal facet arthropathy, particularly on the left with borderline spinal stenosis and no significant foraminal stenosis. L4-L5: Moderate interspace narrowing with mild facet arthropathy, left greater than right. There is borderline spinal stenosis with low normal size of the left neural foramen. L5-S1: Mild facet arthropathy with no significant spinal or foraminal stenosis. Stomach and bowel: Colonic diverticulosis. Vasculature: There is moderate atherosclerotic calcification of the abdominal aorta with extension into the iliac arteries. Soft tissues: Unremarkable. IMPRESSION: 1. Scoliosis with multilevel degenerative changes. There is borderline spinal stenosis at L3-L4 and L4-L5 and some borderline neural foraminal stenosis. 2. Otherwise negative CT lumbar spine. Electronically signed by: Juan Carlos Myles On 07/17/2019 00:15:32 AM
[2019-07-17 00:22] LABS: ALBUMIN 3.3 GM/DL (3.2-5.2); BILIRUBIN,DIRECT 0.1 MG/DL (0.0-0.2); BILIRUBIN,TOTAL 0.6 MG/DL (0.2-1.0); CALCIUM LEVEL 9.2 MG/DL (8.8-10.2); CREATININE FOR GFR 1.01 MG/DL (0.55-1.30); GLOMERULAR FILTRATION RATE 55.1 (>32); TOTAL PROTEIN 6.6 GM/DL (6.4-8.2)
[2019-07-17] MEDS ORDERED: ISOVUE-370 76% 100ML VIAL (Q9967) As Ordered ONE (00:59)
--- NOTE | 2019-07-17 01:41 | REPVR ---
PROCEDURE INFORMATION: Exam: CT Angiography Chest With Contrast Exam date and time: 07/17/2019 12:48 AM Age: 88 years old Clinical indication: Pain; Other: Back; Additional info: Eval for pe TECHNIQUE: Imaging protocol: Computed tomographic angiography of the chest with intravenous contrast. 3D rendering: MIP and/or 3D reconstructed images were created by the technologist. Radiation optimization: All CT scans at this facility use at least one of these dose optimization techniques: automated exposure control; mA and/or kV adjustment per patient size (includes targeted exams where dose is matched to clinical indication); or iterative reconstruction. Contrast material: ISO; Contrast volume: 75 ml; Contrast route: AC; COMPARISON: CR Chest, 1 view 07/17/2019 12:23 AM FINDINGS: Pulmonary arteries: The main pulmonary artery measures 30 mm. There is minimal pulmonary embolism extending into the lingula. Aorta: The ascending thoracic aorta measures 32 mm. Lungs: Minimal bibasilar fibro-atelectatic change and question of minimal lower lobe infiltrates. Pleural space: Unremarkable. No pneumothorax. No pleural effusion. Heart: Unremarkable. No cardiomegaly. No pericardial effusion. Mediastinum: Moderate hiatal hernia. Kidneys and ureters: There is a right renal cyst measuring 2.6 cm. Lymph nodes: Calcified left hilar nodes. Bones/joints: Unremarkable. No acute fracture. Soft tissues: Unremarkable. IMPRESSION: 1. Minimal pulmonary embolism extending into the lingula. 2. Minimal bibasilar fibro-atelectatic change and question of minimal bilateral lower lobe infiltrates. 3. Minimal evidence of old granulomatous disease. 4. Moderate hiatal hernia. Electronically signed by: Juan Carlos Myles On 07/17/2019 01:40:53 AM
[2019-07-17] MEDS ORDERED: APIXABAN 5 MG TAB (ELIQUIS) PO ONE (02:00)
[2019-07-17] MEDS ORDERED: ELIQ5TAB PO ×2 (02:08→02:10)
[2019-07-17] MEDS ORDERED: POTASSIUM CHLORIDE 10 MEQ SR TABLET PO ONE (02:15)
[2019-07-17 02:45] VITALS: BP 159/73
--- NOTE | 2019-07-17 07:39 | REP ---
Clinical: Chest and back pain . Comparison: 07/21/2018 . Findings: The mediastinum and cardiac silhouette are stable and within normal limits for portable technique. The lung reyes demonstrate chronic changes without acute consolidation, effusion, or pneumothorax. Skeletal structures are intact. Impression: No acute cardiopulmonary process appreciated. Electronically Signed by Margarito Estrada MD 07/17/2019 07:30 A
[2019-07-17] MEDS ORDERED: SIMV40TA20 PO (13:02)
== END 2019-07-17 03:16 | disposition home or self-care (01) ==
LOC: M ED 20:10
DX: I26.99 Other pulmonary embolism without acute cor pulmonale (principal); M54.5 Low back pain; I10 Essential (primary) hypertension; K21.9 Gastro-esophageal reflux disease without esophagitis; J44.9 Chronic obstructive pulmonary disease, unspecified; D50.9 Iron deficiency anemia, unspecified; F17.200 Nicotine dependence, unspecified, uncomplicated; K44.9 Diaphragmatic hernia without obstruction or gangrene; K80.20 Calculus of gallbladder without cholecystitis without obstruction; K57.30 Diverticulosis of large intestine without perforation or abscess without bleeding; M51.36 Other intervertebral disc degeneration, lumbar region; M41.86 Other forms of scoliosis, lumbar region; Z79.82 Long term (current) use of aspirin; Z79.01 Long term (current) use of anticoagulants; Z79.899 Other long term (current) drug therapy
CPT/HCPCS: 71045; 71275; 72131; 74176; 80048; 80076; 81001; 83690; 85025; 99284; 99285; Q9967

== ENCOUNTER 2019-07-17 12:34 | Emergency (ER) | payer MEDICARE ==
[~2019-07-17] VITALS: Ht 152.4 cm; Wt 56.8 kg
[~2019-07-17 12:34] MED LIST changes: +ELIQ5TAB PO
[2019-07-17] MEDS ORDERED: SIMV40TA20 PO (13:02)
[2019-07-17 16:05] VITALS: BP 183/84
== END 2019-07-17 16:17 | disposition home or self-care (01) ==
LOC: M ED 12:34
DX: Z91.14 Patient's other noncompliance with medication regimen (principal); I26.99 Other pulmonary embolism without acute cor pulmonale; I10 Essential (primary) hypertension; E78.5 Hyperlipidemia, unspecified; J44.9 Chronic obstructive pulmonary disease, unspecified; F32.9 Major depressive disorder, single episode, unspecified; F17.200 Nicotine dependence, unspecified, uncomplicated; Z79.01 Long term (current) use of anticoagulants; Z79.82 Long term (current) use of aspirin; Z79.899 Other long term (current) drug therapy

== ENCOUNTER 2019-07-22 16:05 | Emergency (ER) | payer MEDICARE ==
[~2019-07-22 16:05] MED LIST changes: +SIMV40TA20 PO
[2019-07-22 16:45] LABS: BASO % 0.5 % (0.0-1.0); EOS % 0.4 % (0.0-3.0); HEMATOCRIT 37.7 % (36.0-47.0); HEMOGLOBIN 11.4 g/dl (12.0-15.5); LYMPH # 1.3 10^3/uL (1.5-5.0); LYMPH % 16.4 % (24.0-44.0); MEAN CORPUSCULAR HEMOGLOBIN 24.8 pg (27.0-33.0); MEAN CORPUSCULAR HGB CONC 30.2 g/dl (32.0-36.5); MONO # 0.7 10^3/uL (0.0-0.8); MONO % 8.6 % (0.0-5.0); NEUTROPHILS # 5.7 10^3/uL (1.5-8.5); NEUTROPHILS % 73.8 % (36.0-66.0); PLATELET COUNT, AUTOMATED 339 10^3/uL (150-450); WHITE BLOOD COUNT 7.7 10^3/uL (4.0-10.0)
--- NOTE | 2019-07-22 16:49 | REP ---
Clinical: Chest pain . Comparison: 07/17/2019 . Findings: The mediastinum and cardiac silhouette are stable and within normal limits for portable technique. The lung reyes are clear without acute consolidation, effusion, or pneumothorax. Skeletal structures are intact. Impression: No focal consolidation. Electronically Signed by Margarito Estrada MD 07/22/2019 04:41 P
[2019-07-22 17:09] LABS: BLOOD UREA NITROGEN 10 MG/DL (7-18); CALCIUM LEVEL 8.8 MG/DL (8.8-10.2); CARBON DIOXIDE LEVEL 27 MEQ/L (21-32); CHLORIDE LEVEL 108 MEQ/L (98-107); CK-MB VALUE MASS < 1.0 NG/ML (<3.6); CPK CREATINE PHOSPHOKINASE 33 U/L (26-192); CREATININE FOR GFR 0.96 MG/DL (0.55-1.30); GLOMERULAR FILTRATION RATE 58.4 (>32); GLUCOSE, FASTING 96 MG/DL (70-100); MB/CK RELATIVE INDEX 3.03 (< OR =4); SODIUM LEVEL 142 MEQ/L (136-145); TROPONIN I < 0.02 NG/ML (< 0.10)
[2019-07-22] MEDS ORDERED: GI COCKTAIL 50ML BTL(HYOSCYAMINE/MAALOX/LIDOCAINE VISCOUS)(1:3:1) PO ONE (17:15)
[2019-07-22] MEDS ORDERED: POTASSIUM CHLORIDE 10 MEQ SR TABLET PO ONE (17:15)
[2019-07-22 18:15] VITALS: BP 179/93
--- NOTE | 2019-07-23 07:53 | ECGEPIP ---
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
== END 2019-07-22 18:38 | disposition home or self-care (01) ==
LOC: M ED 16:05 → EDBD 16:05 → M ED 18:38
DX: F41.9 Anxiety disorder, unspecified (principal); I48.91 Unspecified atrial fibrillation; I10 Essential (primary) hypertension; E78.5 Hyperlipidemia, unspecified; J44.9 Chronic obstructive pulmonary disease, unspecified; Z95.1 Presence of aortocoronary bypass graft; F17.200 Nicotine dependence, unspecified, uncomplicated; Z82.49 Family history of ischemic heart disease and other diseases of the circulatory system; Z79.01 Long term (current) use of anticoagulants; Z79.82 Long term (current) use of aspirin; Z79.899 Other long term (current) drug therapy

== ENCOUNTER 2019-07-28 13:18 | Inpatient (IN) | payer MEDICARE ==
[~2019-07-28] VITALS: Ht 167.6 cm; Wt 60.7 kg
[2019-07-28 14:06] LABS: BASO % 0.4 % (0.0-1.0); EOS # 0.1 10^3/uL (0.0-0.5); EOS % 2.6 % (0.0-3.0); HEMATOCRIT 40.5 % (36.0-47.0); HEMOGLOBIN 11.8 g/dl (12.0-15.5); LYMPH # 1.1 10^3/uL (1.5-5.0); MEAN CORPUSCULAR HEMOGLOBIN 24.6 pg (27.0-33.0); MEAN CORPUSCULAR HGB CONC 29.1 g/dl (32.0-36.5); MEAN CORPUSCULAR VOLUME 84.6 fl (80.0-96.0); MONO # 0.6 10^3/uL (0.0-0.8); MONO % 11.2 % (0.0-5.0); NEUTROPHILS # 3.6 10^3/uL (1.5-8.5); NEUTROPHILS % 65.4 % (36.0-66.0); PLATELET COUNT, AUTOMATED 210 10^3/uL (150-450); RED BLOOD COUNT 4.79 10^6/uL (4.00-5.40); WHITE BLOOD COUNT 5.5 10^3/uL (4.0-10.0)
[2019-07-28] MEDS ORDERED: ALBUTEROL SULFATE 2.5 MG/0.5 ML INH NEB SOLN INH ONE (14:30)
[2019-07-28] MEDS ORDERED: IPRATROPIUM 0.5MG/ALBUTEROL 2.5MG INH SOL UD 3ML (DUONEB)(J7620) NEB ONE (14:30)
[2019-07-28 14:38] LABS: ALBUMIN 3.2 GM/DL (3.2-5.2); ALT/SGPT 11 U/L (12-78); BILIRUBIN,TOTAL 0.3 MG/DL (0.2-1.0); BLOOD UREA NITROGEN 21 MG/DL (7-18); CALCIUM LEVEL 9.5 MG/DL (8.8-10.2); CARBON DIOXIDE LEVEL 26 MEQ/L (21-32); CHLORIDE LEVEL 111 MEQ/L (98-107); CK-MB VALUE MASS < 1.0 NG/ML (<3.6); CPK CREATINE PHOSPHOKINASE 22 U/L (26-192); CREATININE FOR GFR 0.97 MG/DL (0.55-1.30); GLOMERULAR FILTRATION RATE 57.7 (>32); GLUCOSE, FASTING 84 MG/DL (70-100); MB/CK RELATIVE INDEX 4.55 (< OR =4); NT-PRO BNP 123 PG/ML (<450); SODIUM LEVEL 144 MEQ/L (136-145); TOTAL PROTEIN 6.1 GM/DL (6.4-8.2); TROPONIN I < 0.02 NG/ML (< 0.10)
--- NOTE | 2019-07-28 15:06 | REP ---
Portable chest x-ray: Single view. History: Hypoxia. Comparison study: July 22, 2019. Findings: Monitoring electrodes overlie the chest. There is linear fibrosis versus plate-like atelectasis in the right base. Cardiomegaly is observed unchanged. Pulmonary vasculature is not increased. Impression: Cardiomegaly. Plate-like atelectasis versus fibrosis right base. No acute infiltrate. Electronically Signed by Artem Gerard MD 07/28/2019 05:52 P
[2019-07-28] MEDS ORDERED: ISOVUE-370 76% 100ML VIAL (Q9967) As Ordered ONE (15:26)
[2019-07-28 15:30] LABS: APPEARANCE, URINE CLEAR (CLEAR); BACTERIA, URINE AUTO NEGATIVE (NEGATIVE); BILIRUBIN, URINE AUTO NEGATIVE (NEGATIVE); BLOOD, URINE BLOOD NEGATIVE (NEGATIVE); CALCIUM OXALATE CRYSTALS SMALL; COLOR, URINE YELLOW (YELLOW); GLUCOSE, URINE (UA) AUTO NEGATIVE (NEGATIVE); KETONE, URINE AUTO NEGATIVE (NEGATIVE); LEUKOCYTE ESTERASE, URINE AUTO NEGATIVE (NEGATIVE); NITRITE, URINE AUTO NEGATIVE (NEGATIVE); PROTEIN, URINE AUTO NEGATIVE (NEGATIVE); RBC, URINE AUTO 5 /HPF (0-3); SPECIFIC GRAVITY URINE AUTO 1.024 (1.002-1.035); SQUAMOUS EPITHELIAL CELL UR AU 1 /HPF (0-6); UROBILINOGEN, URINE AUTO 0.2 mg/dL (0.0-2.0); WBC, URINE AUTO 1 /HPF (0-3)
[2019-07-28 15:54] LABS: MYOGLOBIN 43 NG/ML (13-71)
--- NOTE | 2019-07-28 16:13 | REP ---
CT pulmonary angiogram: With IV contrast. History: Hypoxia. Comparison studies: Comparison study July 17, 2019. Contrast dose: 75 ML of Isovue [address] technique: Helical scanning is acquired and overlapping 1.5 mm and contiguous 3 mm axial images are reformatted. In addition, maximum intensity projection and multiplanar re-formation images are generated in sagittal and coronal imaging projections. CT pulmonary angiographic findings: There is good opacification in the pulmonary arterial tree. No vessel cutoff or filling defect is seen to suggest pulmonary embolism. There is heavy vascular calcification. There is no evidence of aortic aneurysm or dissection. No pleural or pericardial effusion is seen. A moderate size hiatal hernia is noted. There are mild emphysematous changes in the upper lobes. There are fairly extensive inspissated endobronchial secretions in the right lower lobe and there is consolidation and some atelectasis in the right lower lobe peripherally. Partial filling of the right lower lobe central bronchus. No endobronchial mass lesion is seen. This is a new finding from the recent prior study of 07/17/2019. There is a calcified granuloma in the left upper lobe. There are opaque gallstones in the gallbladder and there is a cyst in the upper pole right kidney. Impression: Retained inspissated endobronchial secretions throughout much of the in the bronchial tree in the right lower lobe. There is some peripheral atelectasis and infiltrate in the right lower lobe. Findings consistent with acute bronchitis. Hiatal hernia. Cholelithiasis and right renal cyst are also noted. Electronically Signed by Artem Gerard MD 07/28/2019 05:53 P
[2019-07-28] MEDS ORDERED: dexameTHASONE 20 MG/5 ML VIAL (J1100) IV ONE (17:15)
[2019-07-28] MEDS ORDERED: ELIQ2.5T PO (17:36)
[2019-07-28] MEDS ORDERED: B-12100T2 PO (17:36)
[2019-07-28] MEDS ORDERED: FERR325T3 PO (17:36)
[2019-07-28] MEDS ORDERED: VITA500C24 PO (17:36)
[2019-07-28] MEDS ORDERED: PANT40TA3 PO (17:36)
[2019-07-28] MEDS ORDERED: SIMV40TA20 PO (17:36)
[2019-07-28] MEDS ORDERED: IPRATROPIUM 0.5MG/ALBUTEROL 2.5MG INH SOL UD 3ML (DUONEB)(J7620) NEB PRN (18:00)
--- NOTE | 2019-07-28 18:45 | HPE ---
DATE OF ADMISSION: 07/28/2019 PRIMARY CARE PROVIDER: Dr. Hallman CHIEF COMPLAINT: Shortness of breath and hypoxemia. HISTORY OF PRESENT ILLNESS: Yvonne Rodriguez is being admitted to the hospitalist service with chronic obstructive pulmonary disease (COPD) exacerbation. She apparently was found confused and hypoxic by a visiting nurse and was brought to the emergency room where blood gas showed a pO2 of 56, oxygen saturation 87% on room air. She is being admitted for exacerbation of COPD. There is concern about her compliance with medications at home. She lives at home and per visiting nurse there has been noncompliance with medications. She was recently admitted on 06/30/2019 for anemia requiring transfusions. At that time, she was found on the floor by her granddaughter, who comments that she has frequent falls. She has a history of smoking induced COPD, hypertension, chronic anxiety and depression, hyperlipidemia, iron deficiency anemia, vitamin B12 deficiency. She had an echocardiogram done on 07/02/2019 that showed ejection fraction of 60 to 65%, pulmonary hypertension, mild diastolic dysfunction, trivial valvular problems. During that admission, she was transfused 2 units of packed red blood cells, transfused up to a hemoglobin of 10.5. She had a pulmonary embolism diagnosed on 07/17/2019, for which she apparently had outpatient treatment. FAMILY HISTORY: Negative for diabetes, cancer or lung problems. SOCIAL HISTORY: She lives alone. She has a granddaughter who checks in on her. 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 She continues to smoke a half of a pack per day. SURGICAL HISTORY: Left knee meniscus repair. ALLERGIES: None known. HOME MEDICATIONS: - albuterol as needed - Xanax 0.5 mg three times a day as needed - Eliquis 2.5 mg twice a day - vitamin C 500 mg daily to supplement her iron supplementation - ferrous sulfate 325 mg daily - aspirin 650 mg daily as needed for pain - Lisinopril 20 mg daily - Protonix 40 mg daily - Paxil 40 mg daily - simvastatin 40 mg daily - vitamin B12 100 mcg daily REVIEW OF SYSTEMS: No hemoptysis, fever, chills, chest pain, palpitations, syncope. She is not sure how she ended up on the floor. She has been coughing and wheezing with some mild sputum production. PHYSICAL EXAMINATION: Blood pressure 152/72, pulse 88, respirations 19, oxygen saturation 87% on room air and 95% on 1 liter. GENERAL APPEARANCE: Elderly, confused. Answers are vague and lack content. She does not remember coming to the emergency room. She does not know why she is being admitted. HEENT: Pupils are equal and reactive to light. Tympanic membranes clear. Oropharynx benign. NECK: No masses. LUNGS: Expiratory wheezes in all reyes, no retractions. HEART: Regular rate and rhythm. 1/6 systolic ejection murmur. ABDOMEN: Soft, nontender. No masses. EXTREMITIES: Trace peripheral edema. Normal strength in the arms and legs. Moves and legs with equal strength. Normal reflexes. LABORATORIES: CT angiogram showed mucus in the bronchus consistent with bronchitis. No pulmonary embolism. Electrocardiogram (EKG) is not available for evaluation. White count 5.5, hemoglobin 11.8, platelets 210. Sodium 144, potassium 4.0, BUN 21, creatinine 0.9, glucose 84. Urinalysis showed 1 white cell. AB.39/44/54/87%. IMPRESSION: 1. Exacerbation of chronic obstructive pulmonary disease (COPD) secondary to bronchitis and hypoxemia. Supplemental oxygen has been ordered. Titrate to 90%. Nebulized bronchodilator, intravenous steroids with Solu-Medrol 40 mg every 12 hours. Antibiotic with doxycycline 100 mg twice a day has been ordered. The patient will be admitted to the medical floor. The patient is FULL CODE. 2. History of pulmonary embolism. CT angiogram from 07/17/2019 showed a pulmonary embolism. Apparently this was treated as an outpatient. She is on Eliquis for this. Her compliance is questionable. 3. Tobacco abuse. The importance of smoking cessation was discussed. 4. History of depression. Continue Paxil 20 mg daily to avoid SSRI withdrawal syndrome. 5. Recent admission for iron deficiency anemia requiring transfusions. Continue her iron supplement and vitamin C. Daily complete blood count (CBC) has been ordered. 6. Hypertensive heart disease. Continue Lisinopril 20 mg daily. 7. Mild pulmonary hypertension seen on echocardiogram. Suspect some nocturnal hypoxemia. She might benefit from nocturnal oximetry before discharge. 8. Chronic anxiety. Continue Xanax on an as needed basis. She is not retaining CO2 and I think that she can safely continue this. She is at risk of withdrawal if we stop this abruptly.
[2019-07-28 20:37] VITALS: BP 128/63
[2019-07-28] MEDS: IPRATROPIUM 0.5MG/ALBUTEROL 2.5MG INH SOL UD 3ML (DUONEB)(J7620) NEB SCH (20:50)
[2019-07-28] MEDS: methylPREDNISolone INJ 40 MG/1 ML VIAL (J2920) IV SCH (22:10)
[2019-07-28] MEDS: DOXYCYCLINE HYCLATE 100 MG TAB PO SCH (22:10)
[2019-07-28] MEDS: APIXABAN 2.5 MG TAB (ELIQUIS) PO SCH (22:10)
[2019-07-29] VITALS (7 sets, daily range): BP systolic 122–147; BP diastolic 59–77
[2019-07-29] MEDS: IPRATROPIUM 0.5MG/ALBUTEROL 2.5MG INH SOL UD 3ML (DUONEB)(J7620) NEB SCH ×4 (02:00→20:06)
[2019-07-29 06:15] LABS: HEMATOCRIT 38.3 % (36.0-47.0); HEMOGLOBIN 11.3 g/dl (12.0-15.5); MEAN CORPUSCULAR HEMOGLOBIN 24.6 pg (27.0-33.0); MEAN CORPUSCULAR HGB CONC 29.5 g/dl (32.0-36.5); MEAN CORPUSCULAR VOLUME 83.4 fl (80.0-96.0); PLATELET COUNT, AUTOMATED 202 10^3/uL (150-450); RED BLOOD COUNT 4.59 10^6/uL (4.00-5.40); WHITE BLOOD COUNT 3.5 10^3/uL (4.0-10.0)
[2019-07-29 06:46] LABS: CALCIUM LEVEL 9.6 MG/DL (8.8-10.2); CREATININE FOR GFR 0.94 MG/DL (0.55-1.30); GLOMERULAR FILTRATION RATE 59.8 (>32); POTASSIUM SERUM 3.7 MEQ/L (3.5-5.1)
[2019-07-29] MEDS ORDERED: ACETAMINOPHEN 325 MG TAB PO ONE (07:15)
[2019-07-29] MEDS: CYANOCOBALAMIN 500 MCG TAB PO SCH (08:50)
[2019-07-29] MEDS: FERROUS SULFATE 325MG TAB PO SCH (08:50)
[2019-07-29] MEDS: PARoxetine 20 MG TAB PO SCH (08:50)
[2019-07-29] MEDS: PANTOPRAZOLE 40MG TAB (PROTONIX) PO SCH (08:50)
[2019-07-29] MEDS: lisinopriL 20 MG TAB PO SCH (08:50)
[2019-07-29] MEDS: SIMVASTATIN 40 MG TAB PO SCH (08:51)
[2019-07-29] MEDS: DOXYCYCLINE HYCLATE 100 MG TAB PO SCH ×2 (08:51→22:09)
[2019-07-29] MEDS: APIXABAN 2.5 MG TAB (ELIQUIS) PO SCH ×2 (08:51→22:09)
[2019-07-29] MEDS ORDERED: ASCORBIC ACID 500 MG TAB PO SCH (09:00)
--- NOTE | 2019-07-29 11:01 | IPNPDOC ---
Subjective Date Seen The patient was seen on 07/29/19. Subjective Chief Complaint/HPI shortness of breath (improving) Pulmonary: Reports: Dyspnea Objective Physical Examination Chest Exam: Positive: Wheezing (b/l lung reyes) Assessment /Plan Assessment 1. Exacerbation of COPD (secondary to bronchitis) - continue supplemental oxygen. - duonebs, IV solumedrol 40mg q12. - continue doxycycline. 2. hx PE - continue eliquis. 3. depression - continue Paxil. 4. tobacco use - smoking cessation counselling. 5. HTN - continue lisinopril. 6. anxiety - continue xanax prn. 7. Fe deficiency anemia - recent admission requiring transfusions. - continue iron supplements and vitamin C. - monitor CBC. 8. DVT ppx - on eliquis. Plan/VTE VTE Prophylaxis Ordered?: Yes VS, I&O, 24H, Fishbone Vital Signs/I&O Vital Signs Date Time Temp Pulse Resp B/P (MAP) Pulse Ox O2 Delivery O2 Flow Rate FiO2 07/29/19 10:00 97.7 81 17 122/63 (82) 94 Nasal Cannula 1.0 I&O- Last 24 Hours up to 6 AM 07/29/19 06:00 Intake Total 0 ml Output Total 0 ml Balance 0 ml Laboratory Data 24H LABS Laboratory Tests 2 07/28/19 13:53: Urine Color YELLOW, Urine Appearance CLEAR, Urine pH 6.0, Urine Specific [place] 1.024, Urine Protein NEGATIVE, Urine Glucose (Auto)(UA) NEGATIVE, Urine Ketones (Auto) NEGATIVE, Urine Blood NEGATIVE, Urine Nitrite NEGATIVE, Urine Bilirubin NEGATIVE, Urine Urobilinogen 0.2, Urine Leukocyte Esterase (Auto) NEGATIVE, Urine WBC (Auto) 1, Urine RBC (Auto) 5H, Urine Hyaline Casts (Auto) 0, Urine Bacteria (Auto) NEGATIVE, Urine Squamous Epithelial Cells 1, Urine Calcium Oxalate Cryst (Auto) SMALL, Urine Sperm (Auto) 07/28/19 13:56: Immature Granulocyte % (Auto) 0.4, Neutrophils (%) (Auto) 65.4, Lymphocytes (%) (Auto) 20.0L, Monocytes (%) (Auto) 11.2H, Eosinophils (%) (Auto) 2.6, Basophils (%) (Auto) 0.4, Neutrophils # (Auto) 3.6, Lymphocytes # (Auto) 1.1L, Monocytes # (Auto) 0.6, Eosinophils # (Auto) 0.1, Basophils # (Auto) 0.0, Nucleated Red Blood Cells % (auto) 0.0, Anion Gap 7L, Glomerular Filtration Rate 57.7, Calcium Level 9.5, Total Bilirubin 0.3, Aspartate Amino Transf (AST/SGOT) 11, Alanine Am inotransferase (ALT/SGPT) 11L, Alkaline Phosphatase 70, Total Creatine Kinase 22L, Creatine Kinase MB < 1.0, Creatine Kinase MB Relative Index 4.55H, Myoglobin 43, Troponin I < 0.02, MK-Acm-D-Type Natriuretic Peptide 123, Total Protein 6.1L, Albumin 3.2, Albumin/Globulin Ratio 1.10 07/28/19 14:53: POC pH (Misc Panel) 7.397, POC Base Excess (Misc Panel) 2.0, POC Saturated Percent O2 (Misc) 87L, POC pO2 (Misc Panel) 54.0L, POC pCO2 (Misc Panel) 44.3, POC HCO3 (Misc Panel) 27.2H, POC Total CO2 (Misc Panel) 29.0H 07/29/19 05:29: Nucleated Red Blood Cells % (auto) 0.0, Anion Gap 7L, Glomerular Filtration Rate 59.8, Calcium Level 9.6 CBC/BMP Laboratory Tests 07/28/19 13:56 07/29/19 05:29 ELENA PARIKH MD Jul 29, 2019 11:01
[2019-07-29] MEDS: methylPREDNISolone INJ 40 MG/1 ML VIAL (J2920) IV SCH ×2 (11:03→22:09)
[2019-07-29] MEDS: ALPRAZolam 0.5 MG TAB PO PRN (23:44)
[2019-07-30 02:00] VITALS: BP 125/64
[2019-07-30] MEDS: IPRATROPIUM 0.5MG/ALBUTEROL 2.5MG INH SOL UD 3ML (DUONEB)(J7620) NEB SCH ×4 (02:00→20:47)
[2019-07-30 06:00] VITALS: BP 136/62
[2019-07-30 06:22] LABS: HEMATOCRIT 33.6 % (36.0-47.0); MEAN CORPUSCULAR HEMOGLOBIN 24.8 pg (27.0-33.0); MEAN CORPUSCULAR HGB CONC 29.8 g/dl (32.0-36.5); MEAN CORPUSCULAR VOLUME 83.2 fl (80.0-96.0); PLATELET COUNT, AUTOMATED 194 10^3/uL (150-450); RED BLOOD COUNT 4.04 10^6/uL (4.00-5.40); WHITE BLOOD COUNT 11.9 10^3/uL (4.0-10.0)
[2019-07-30 06:39] LABS: BLOOD UREA NITROGEN 22 MG/DL (7-18); CALCIUM LEVEL 9.2 MG/DL (8.8-10.2); CARBON DIOXIDE LEVEL 25 MEQ/L (21-32); CHLORIDE LEVEL 112 MEQ/L (98-107); CREATININE FOR GFR 0.93 MG/DL (0.55-1.30); GLOMERULAR FILTRATION RATE > 60.0 (>32); GLUCOSE, FASTING 125 MG/DL (70-100); POTASSIUM SERUM 4.1 MEQ/L (3.5-5.1); SODIUM LEVEL 144 MEQ/L (136-145)
--- NOTE | 2019-07-30 07:45 | ECGEPIP ---
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
[2019-07-30 10:00] VITALS: BP 143/66
[2019-07-30] MEDS: methylPREDNISolone INJ 40 MG/1 ML VIAL (J2920) IV SCH ×2 (10:52→23:10)
[2019-07-30] MEDS: PANTOPRAZOLE 40MG TAB (PROTONIX) PO SCH (10:53)
[2019-07-30] MEDS: DOXYCYCLINE HYCLATE 100 MG TAB PO SCH ×2 (10:53→21:00)
[2019-07-30] MEDS: FERROUS SULFATE 325MG TAB PO SCH (10:53)
[2019-07-30] MEDS: SIMVASTATIN 40 MG TAB PO SCH (10:53)
[2019-07-30] MEDS: APIXABAN 2.5 MG TAB (ELIQUIS) PO SCH ×2 (10:53→21:00)
[2019-07-30] MEDS: PARoxetine 20 MG TAB PO SCH (10:54)
[2019-07-30] MEDS: CYANOCOBALAMIN 500 MCG TAB PO SCH (10:54)
[2019-07-30] MEDS: lisinopriL 20 MG TAB PO SCH (10:54)
--- NOTE | 2019-07-30 12:06 | IPNPDOC ---
Subjective Date Seen The patient was seen on 07/30/19. Subjective Chief Complaint/HPI sob (improving) Objective Physical Examination Chest Exam: Positive: Diminished Assessment /Plan Assessment 1. Exacerbation of COPD (secondary to bronchitis) - continue supplemental oxygen. - duonebs, IV solumedrol 40mg q12, will switch to PO tmw. - continue doxycycline. 2. hx PE - continue eliquis. 3. depression - continue Paxil. 4. tobacco use - smoking cessation counselling. 5. HTN - continue lisinopril. 6. anxiety - continue xanax prn. 7. Fe deficiency anemia - recent admission requiring transfusions. - continue iron supplements and vitamin C. - monitor CBC. 8. DVT ppx - on eliquis. Plan/VTE VTE Prophylaxis Ordered?: Yes VS, I&O, 24H, Fishbone Vital Signs/I&O Vital Signs Date Time Temp Pulse Resp B/P (MAP) Pulse Ox O2 Delivery O2 Flow Rate FiO2 07/30/19 10:00 97.7 74 20 143/66 (91) 95 Nasal Cannula 1.0 I&O- Last 24 Hours up to 6 AM 07/30/19 06:00 Intake Total 480 ml Output Total 100 ml Balance 380 ml Laboratory Data 24H LABS Laboratory Tests 2 07/30/19 05:30: Nucleated Red Blood Cells % (auto) 0.0, Anion Gap 7L, Glomerular Filtration Rate > 60.0, Calcium Level 9.2 CBC/BMP Laboratory Tests 07/30/19 05:30 ELENA PARIKH MD Jul 30, 2019 12:06
[2019-07-30 14:00] VITALS: BP 133/67
[2019-07-30 18:00] VITALS: BP 152/71
[2019-07-30 22:00] VITALS: BP 142/78
[2019-07-30] MEDS: ALPRAZolam 0.5 MG TAB PO PRN (23:20)
[2019-07-31 02:00] VITALS: BP 140/94
[2019-07-31] MEDS: IPRATROPIUM 0.5MG/ALBUTEROL 2.5MG INH SOL UD 3ML (DUONEB)(J7620) NEB SCH ×3 (02:00→13:04)
[2019-07-31 06:00] VITALS: BP 132/77
[2019-07-31 06:52] LABS: HEMATOCRIT 34.1 % (36.0-47.0); HEMOGLOBIN 10.1 g/dl (12.0-15.5); MEAN CORPUSCULAR HEMOGLOBIN 24.9 pg (27.0-33.0); MEAN CORPUSCULAR HGB CONC 29.6 g/dl (32.0-36.5); PLATELET COUNT, AUTOMATED 179 10^3/uL (150-450); RED BLOOD COUNT 4.06 10^6/uL (4.00-5.40); WHITE BLOOD COUNT 9.1 10^3/uL (4.0-10.0)
[2019-07-31 07:17] LABS: CALCIUM LEVEL 8.5 MG/DL (8.8-10.2); CREATININE FOR GFR 0.98 MG/DL (0.55-1.30); POTASSIUM SERUM 4.1 MEQ/L (3.5-5.1)
[2019-07-31] MEDS: PARoxetine 20 MG TAB PO SCH (08:09)
[2019-07-31] MEDS: SIMVASTATIN 40 MG TAB PO SCH (08:09)
[2019-07-31] MEDS: DOXYCYCLINE HYCLATE 100 MG TAB PO SCH (08:09)
[2019-07-31] MEDS: APIXABAN 2.5 MG TAB (ELIQUIS) PO SCH (08:09)
[2019-07-31] MEDS: PANTOPRAZOLE 40MG TAB (PROTONIX) PO SCH (08:09)
[2019-07-31] MEDS: CYANOCOBALAMIN 500 MCG TAB PO SCH (08:10)
[2019-07-31] MEDS: lisinopriL 20 MG TAB PO SCH (08:10)
[2019-07-31] MEDS: FERROUS SULFATE 325MG TAB PO SCH (08:10)
[2019-07-31] MEDS ORDERED: predniSONE 20 MG TAB PO SCH (09:00)
[2019-07-31 10:00] VITALS: BP 152/60
[2019-07-31] MEDS ORDERED: PRED10PA PO (11:26)
[2019-07-31] MEDS ORDERED: DOXY100T PO (11:26)
--- NOTE | 2019-07-31 11:29 | DS.PDOC ---
Discharge Summary General Date of Admission Jul 28, 2019 at 17:48 Date of Discharge 07/31/19 Attending Physician: ELENA PARIKH MD Discharge Summary PROCEDURES PERFORMED DURING STAY: [None]. ADMITTING DIAGNOSES: 1. acute COPD exacerbation 2. bronchitis DISCHARGE DIAGNOSES: 1. acute COPD exacerbation 2. bronchitis COMPLICATIONS/CHIEF COMPLAINT: shortness of breath, cough HISTORY OF PRESENT ILLNESS: 88 year old female presents with shortness of breath and hypoxia. She apparently was found confused and hypoxic by a visiting nurse and was brought to the emergency room where blood gas showed a pO2 of 56, oxygen saturation 87% on room air. She was subsequently admitted for acute COPD exacerbation. There is concern about her compliance with medications at home. She lives at home and per visiting nurse there has been noncompliance with medications. HOSPITAL COURSE: Patient was admitted and treated for the following conditions: 1. acute COPD exacerbation (secondary to bronchitis) - started on IV solumedrol and duonebs, supplemental oxygen. - started on doxycycline. - patient noted significant improvement in her symptoms and was switched to oral steroids. - patient is stable for discharge home with outpatient follow up with her PCP. - she will continue with steroid taper and doxycycline to complete a 7 day course. 2. hx PE - continue eliquis. - outpatient follow up. 3. depression - continue Paxil. 4. tobacco use - smoking cessation counselling done during this admission. 5. HTN - continue lisinopril. 6. anxiety - continue xanax prn as outpatient. 7. Fe deficiency anemia - continue iron supplements and vitamin C. DISCHARGE MEDICATIONS: Please see below. ALLERGIES: Please see below. PHYSICAL EXAMINATION ON DISCHARGE: VITAL SIGNS: Please see below. GENERAL: awake, NAD, elderly female HEENT: NCAT, anicteric sclera, PERRLA NECK: supple, no JVD, no thyromegaly CARDIOVASCULAR EXAMINATION: NS1S2, regular, no murmurs, rubs RESPIRATORY EXAMINATION: decreased breath sounds b/l, no wheezes, rales, rhonchi ABDOMINAL EXAMINATION: NT/ND, positive bowel sounds x 4 EXTREMITIES: no cyanosis, clubbing, edema SKIN: warm, no rashes NEUROLOGICAL EXAMINATION: AAO x 3, motor 5/5, sensory grossly intact PSYCHIATRIC EXAMINATION: calm, cooperative, normal mood/affect LABORATORY DATA: Please see below. IMAGING: CTA chest 07/28/19: Retained inspissated endobronchial secretions throughout much of the in the bronchial tree in the right lower lobe. There is some peripheral atelectasis and infiltrate in the right lower lobe. Findings consistent with acute bronchitis. Hiatal hernia. Cholelithiasis and right renal cyst are also noted. ACTIVITY: as tolerated DIET: as tolerated DISPOSITION: home DISCHARGE INSTRUCTIONS: 1. please follow up with your PCP in 1 week. ITEMS TO FOLLOWUP ON ON OUTPATIENT: 1. none DISCHARGE CONDITION: stable TIME SPENT ON DISCHARGE: Greater than 30 minutes. Vital Signs/I&Os Vital Signs Date Time Temp Pulse Resp B/P (MAP) Pulse Ox O2 Delivery O2 Flow Rate FiO2 07/31/19 10:00 98.0 82 20 152/60 (90) 92 Room Air 07/30/19 21:00 1.0 I&O- Last 24 Hours up to 6 AM 07/31/19 06:00 Intake Total 170 ml Output Total 650 ml Balance -480 ml Laboratory Data Labs 24H Laboratory Tests 2 07/31/19 06:25: Nucleated Red Blood Cells % (auto) 0.0, Anion Gap 8, Glomerular Filtration Rate 57.0, Calcium Level 8.5L CBC/BMP Laboratory Tests 07/31/19 06:25 Discharge Medications Scheduled Apixaban (Eliquis) 2.5 Mg Tablet, 2.5 MG PO BID, (Reported) Ascorbic Acid (Vitamin C) 500 Mg Capsule, 500 MG PO DAILY, (Reported) Cyanocobalamin (Vitamin B-12) (Vitamin B-12) 100 Mcg Tablet, 100 MCG PO DAILY, (Reported) Doxycycline Hyclate (Doxycycline Hyclate) 100 Mg Tablet, 200 MG PO DAILY Take 1 TAB by mouth daily for the next three days. Ferrous Sulfate (Ferrous Sulfate) 325 Mg Tablet.dr, 325 MG PO DAILY, (Reported) Lisinopril (Lisinopril) 20 Mg Tab, 20 MG PO DAILY, (Reported) Pantoprazole Sodium (Pantoprazole Sodium) 40 Mg Tablet.dr, 40 MG PO DAILY, (Reported) Paroxetine HCl (Paroxetine HCl) 40 Mg Tab, 40 MG PO DAILY, (Reported) Prednisone (Prednisone) 10 Mg Tab.ds.pk, 10 MG PO DAILY Take 2 TABS by mouth daily for 2 days followed by 1 TAB by mouth daily for 2 days Simvastatin (Simvastatin) 40 Mg Tablet, 40 MG PO DAILY, (Reported) Scheduled PRN Albuterol Sulfate (Albuterol Sulfate) 2.5 Mg/0.5 Ml Neb, 2.5 MG INH Q4H PRN for SHORTNESS OF BREATH, (Reported) Alprazolam (Alprazolam) 0.5 Mg Tab, 0.5 MG PO TID PRN for ANXIETY, (Reported) Aspirin (Aspirin) 325 Mg Tablet, 650 MG PO DAILY PRN for PAIN, (Reported) Allergies Coded Allergies: No Known Allergies (Unverified , 07/22/19) ELENA PARIKH MD Jul 31, 2019 11:29
[2019-07-31] MEDS: ALPRAZolam 0.5 MG TAB PO PRN (11:56)
== END 2019-07-31 14:00 | disposition home health service (06) | DRG 192 ==
LOC: EDBD 13:18 → M ED 13:18 → M ED INP 17:48 → ENRESERV 18:24 → M MSPAV 20:35
PROVIDERS: ADMIT Family Medicine; ATTEND Internal Medicine
DX: J44.1 Chronic obstructive pulmonary disease with (acute) exacerbation (principal); Z79.01 Long term (current) use of anticoagulants; Z86.711 Personal history of pulmonary embolism; I11.9 Hypertensive heart disease without heart failure; D50.9 Iron deficiency anemia, unspecified; F17.200 Nicotine dependence, unspecified, uncomplicated; F32.9 Major depressive disorder, single episode, unspecified; F41.9 Anxiety disorder, unspecified; Z79.899 Other long term (current) drug therapy; E53.8 Deficiency of other specified B group vitamins; I27.20 Pulmonary hypertension, unspecified; J20.9 Acute bronchitis, unspecified

== ENCOUNTER 2019-08-08 18:06 | Emergency (ER) | payer MEDICARE ==
[~2019-08-08] VITALS: Ht 152.4 cm; Wt 56.8 kg
[~2019-08-08 18:06] MED LIST changes: +DOXY100T PO; +ELIQ2.5T PO; +PRED10PA PO
[2019-08-08] MEDS ORDERED: GI COCKTAIL 50ML BTL(HYOSCYAMINE/MAALOX/LIDOCAINE VISCOUS)(1:3:1) PO ONE (18:45)
[2019-08-08] MEDS ORDERED: ONDANSETRON 4MG/2ML VIAL (J2405) IV ONE (18:45)
[2019-08-08] MEDS ORDERED: PANTOPRAZOLE 40MG INJ (PROTONIX) (C9113) IV ONE (18:45)
[2019-08-08] MEDS ORDERED: NS 1,000 ML IV SCH (18:45)
[2019-08-08 19:29] LABS: BASO % 0.5 % (0.0-1.0); EOS # 0.1 10^3/uL (0.0-0.5); HEMATOCRIT 45.3 % (36.0-47.0); HEMOGLOBIN 13.4 g/dl (12.0-15.5); LYMPH # 1.2 10^3/uL (1.5-5.0); LYMPH % 19.3 % (24.0-44.0); MEAN CORPUSCULAR HEMOGLOBIN 24.4 pg (27.0-33.0); MEAN CORPUSCULAR HGB CONC 29.6 g/dl (32.0-36.5); MEAN CORPUSCULAR VOLUME 82.5 fl (80.0-96.0); MONO # 0.6 10^3/uL (0.0-0.8); MONO % 9.2 % (0.0-5.0); NEUTROPHILS # 4.3 10^3/uL (1.5-8.5); NEUTROPHILS % 69.4 % (36.0-66.0); PLATELET COUNT, AUTOMATED 219 10^3/uL (150-450); RED BLOOD COUNT 5.49 10^6/uL (4.00-5.40); WHITE BLOOD COUNT 6.2 10^3/uL (4.0-10.0)
[2019-08-08 19:38] LABS: INR 1.01
[2019-08-08 20:00] LABS: ALT/SGPT 16 U/L (12-78); BLOOD UREA NITROGEN 22 MG/DL (7-18); CALCIUM LEVEL 9.6 MG/DL (8.8-10.2); CARBON DIOXIDE LEVEL 26 MEQ/L (21-32); CHLORIDE LEVEL 106 MEQ/L (98-107); CREATININE FOR GFR 0.89 MG/DL (0.55-1.30); GLOMERULAR FILTRATION RATE > 60.0 (>32); GLUCOSE, FASTING 83 MG/DL (70-100); POTASSIUM SERUM 4.7 MEQ/L (3.5-5.1); SODIUM LEVEL 141 MEQ/L (136-145)
[2019-08-08 20:01] LABS: ALBUMIN 3.5 GM/DL (3.2-5.2); BILIRUBIN,DIRECT < 0.1 MG/DL (0.0-0.2); BILIRUBIN,TOTAL 0.5 MG/DL (0.2-1.0); LIPASE 433 U/L (73-393); TOTAL PROTEIN 6.9 GM/DL (6.4-8.2)
[2019-08-08] MEDS ORDERED: ISOVUE-370 76% 100ML VIAL (Q9967) As Ordered ONE (20:38)
[2019-08-08 20:51] LABS: AMYLASE 87 U/L (25-115)
--- NOTE | 2019-08-08 21:58 | REPVR ---
PROCEDURE INFORMATION: Exam: CT Abdomen And Pelvis With Contrast Exam date and time: 08/08/2019 8:52 PM Age: 88 years old Clinical indication: Abdominal pain; Generalized; Additional info: Pancreatitis TECHNIQUE: Imaging protocol: Computed tomography of the abdomen and pelvis with intravenous contrast. Radiation optimization: All CT scans at this facility use at least one of these dose optimization techniques: automated exposure control; mA and/or kV adjustment per patient size (includes targeted exams where dose is matched to clinical indication); or iterative reconstruction. Contrast material: ISOVUE 370; Contrast volume: 100 ml; Contrast route: IV; COMPARISON: CT ABD PELVIS W/O CONTRAST 07/16/2019 11:09 PM FINDINGS: Heart: Mild cardiomegaly without pericardial effusion. Mediastinum: Hiatal hernia. Liver: There is a diffuse decrease in hepatic parenchymal density, consistent with fatty infiltration. Gallbladder and bile ducts: Cholelithiasis. Pancreas: The pancreas is normal. Spleen: The spleen is normal. Adrenals: The adrenal glands are normal. Kidneys and ureters: The kidneys are normal in appearance other than bilateral renal cortical cysts largest on the right measures 2.6 cm. Stomach and bowel: There is no evidence of intestinal obstruction. Diverticulosis without evidence of diverticulitis. Appendix: No evidence of appendicitis. Intraperitoneal space: Small posterior eventration of the left hemidiaphragm. Vasculature: There is no evidence of an abdominal aortic aneurysm. The vasculature demonstrates diffuse moderate atherosclerotic calcification. Lymph nodes: Unremarkable. No enlarged lymph nodes. Bladder: The bladder is unremarkable. Reproductive: Hysterectomy. Bones/joints: Skeletal degeneration. Soft tissues: Unremarkable. IMPRESSION: 1. Relatively large hiatal hernia. 2. No evidence of pancreatitis. 3. Cholelithiasis. 4. No evidence of urinary tract obstruction. Multiple renal cysts. No further workup recommended. 4. Diverticulosis without evidence of diverticulitis. 5. Atherosclerotic vascular disease. Electronically signed by: Augusta Samson On 08/08/2019 21:58:10 PM
--- NOTE | 2019-08-08 22:01 | REPVR ---
PROCEDURE INFORMATION: Exam: US Abdomen Limited, Right Upper Quadrant Exam date and time: 08/08/2019 9:30 PM Age: 88 years old Clinical indication: Abdominal pain; Epigastric; Additional info: Abd pain TECHNIQUE: Imaging protocol: Real-time ultrasound of the abdomen with image documentation. Examination was focused on the right upper quadrant. COMPARISON: CT ABD/PEL W/IV CONTRAST ONLY 08/08/2019 8:50 PM FINDINGS: Liver: No focal hepatic lesion. Gallbladder: Calculi are seen within the gallbladder. There is no wall thickening. The common bile duct measures 5.6 mm which is upper limits of normal. There is no sonographic Guzman sign. Common bile duct: See Gallbladder Finding. Pancreas: Pancreas is obscured by bowel gas. Right kidney: The right kidney measures 9.7 cm in length. There is no hydronephrosis. The largest cyst measures 2.5 x 2.7 x 2.2 cm. IMPRESSION: 1. Cholelithiasis without evidence of cholecystitis. 2. No evidence of right hydronephrosis. Electronically signed by: Augusta Samson On 08/08/2019 22:01:15 PM
[2019-08-08 22:16] VITALS: BP 169/72
--- NOTE | 2019-08-09 10:02 | ECGEPIP ---
[facility] - ED Test Date: 2019-08-08 Pat Name: DARIO OLMOS Department: Room: - Gender: Female Chief Operator: : 1930 Requested By: ANA RIVERA Order Number: [id number] Reading MD: Nettie Martinez Measurements Intervals [place] Rate: 80 P: 58 TN: 141 QRS: -22 QRSD: 102 T: 62 QT: 386 QTc: 446 Interpretive Statements SINUS RHYTHM WITH FREQUENT VENTRICULAR PREMATURE COMPLEXES BORDERLINE LEFT AXIS DEVIATION LEFT VENTRICULAR HYPERTROPHY AND ST-T CHANGE VS ISCHEMIA SIMILAR 07/28/19 Electronically Signed on 08-09-2019 10:02:17 EST by Nettie Martinez
--- NOTE | 2019-08-09 10:52 | REP ---
Abdomen series: Three views. History: Abdomen pain. Comparison study: July 28, 2019. Findings: Upright chest radiograph shows cardiac enlargement. There is mild linear plate-like atelectasis in the right base. This is improved from the July 28, 2019 study. No free subdiaphragmatic air is seen. No focal infiltrate is observed. Supine and erect views of the abdomen reveal a normal bowel gas pattern. There is air and stool in the proximal and distal colon. No large or small bowel dilation is seen. There are degenerative changes in the lumbar spine. Psoas margins and flank stripes are intact. Impression: Negative acute abdominal series. Electronically Signed by Artem Gerard MD 08/09/2019 08:15 A
== END 2019-08-08 22:50 | disposition home or self-care (01) ==
LOC: EDBD 18:06 → M ED 18:06
DX: R10.9 Unspecified abdominal pain (principal); I51.9 Heart disease, unspecified; I10 Essential (primary) hypertension; J44.9 Chronic obstructive pulmonary disease, unspecified; K21.9 Gastro-esophageal reflux disease without esophagitis; G89.29 Other chronic pain; F17.200 Nicotine dependence, unspecified, uncomplicated; K44.9 Diaphragmatic hernia without obstruction or gangrene; K80.20 Calculus of gallbladder without cholecystitis without obstruction; N28.1 Cyst of kidney, acquired; K57.30 Diverticulosis of large intestine without perforation or abscess without bleeding; I25.10 Atherosclerotic heart disease of native coronary artery without angina pectoris; Z79.82 Long term (current) use of aspirin; Z79.01 Long term (current) use of anticoagulants; Z79.899 Other long term (current) drug therapy
CPT/HCPCS: 74021; 74177; 76705; 80048; 80076; 81001; 82150; 83690; 85025; 85610; 93005; 93041; 96361; 96374; 96375; 99285; C9113; J2405; Q9967

== ENCOUNTER 2019-11-24 13:05 | Inpatient (IN) | payer MEDICARE ==
[~2019-11-24] VITALS: Ht 152.4 cm; Wt 65.2 kg
[2019-11-24] MEDS ORDERED: APIXABAN 2.5 MG TAB (ELIQUIS) PO ONE (13:45)
[2019-11-24] MEDS ORDERED: ALPRAZolam 0.25 MG TAB PO ONE (13:45)
[2019-11-24] MEDS ORDERED: lisinopriL 20 MG TAB PO ONE (13:45)
[2019-11-24 16:00] LABS: HEMATOCRIT 39.4 % (36.0-47.0); HEMOGLOBIN 12.3 g/dl (12.0-15.5); MEAN CORPUSCULAR HEMOGLOBIN 26.9 pg (27.0-33.0); MEAN CORPUSCULAR HGB CONC 31.2 g/dl (32.0-36.5); PLATELET COUNT, AUTOMATED 311 10^3/uL (150-450); RED BLOOD COUNT 4.58 10^6/uL (4.00-5.40); WHITE BLOOD COUNT 7.2 10^3/uL (4.0-10.0)
[2019-11-24 16:30] LABS: ACETAMINOPHEN LEVEL < 2.0 UG/ML (10.0-30.0); ALBUMIN 3.5 GM/DL (3.2-5.2); ALT/SGPT 17 U/L (12-78); BILIRUBIN,DIRECT < 0.1 MG/DL (0.0-0.2); BILIRUBIN,TOTAL 0.3 MG/DL (0.2-1.0); BLOOD UREA NITROGEN 13 MG/DL (7-18); CALCIUM LEVEL 9.9 MG/DL (8.8-10.2); CARBON DIOXIDE LEVEL 27 MEQ/L (21-32); CHLORIDE LEVEL 108 MEQ/L (98-107); CREATININE FOR GFR 0.89 MG/DL (0.55-1.30); ETHYL ALCOHOL (ETHANOL) < 0.003 % (0.000-0.010); GLOMERULAR FILTRATION RATE > 60.0 (>32); GLUCOSE, FASTING 89 MG/DL (70-100); POTASSIUM SERUM 4.2 MEQ/L (3.5-5.1); SALICYLATE LEVEL 2.4 MG/DL (5.0-30.0); SODIUM LEVEL 142 MEQ/L (136-145); THYROID STIMULATING HORMONE 0.786 uIU/ML (0.358-3.740); TOTAL PROTEIN 6.8 GM/DL (6.4-8.2)
[2019-11-24] MEDS ORDERED: MAALOX 30 ML SUSP *UDC PO PRN (17:15)
[2019-11-24] MEDS ORDERED: ACETAMINOPHEN TAB 650MG DOSE (2X325MG) PO PRN (17:15)
[2019-11-24] MEDS ORDERED: MOM 30ML SUSPENSION UDC PO PRN (17:15)
--- NOTE | 2019-11-24 18:27 | HPEPDOC ---
[facility] Medical History & Physical Date of Admission November 24, 2019 Date of Service: November 24, 2019 Attending Physician: MINNIE SHORT MD History and Physical CHIEF COMPLAINT: anxiety, hypertension HISTORY OF PRESENT ILLNESS: Yvonne is an 88-year-old female who presented to the ED due to increased anxiety. She states she is not sure who her PCP is and believes she was discharged from her PCP due to not making her appointments. She is unsure exactly what medications she takes at home, but she knows she has anxiety medication to take when she needs it. When prompted, she remembers that she takes a medication for her blood pressure and for a blood clot that she had in her lung. She states she only took one pill this morning and she is not sure which one it was. She states she feels well currently, her anxiety has improved. She has not other complaints. The patient's granddaughter also spoke with the ED provider. She is concerned that the patient cannot take care of herself alone at home anymore. She feels the patient is not properly taking her medications and is overusing her xanax. The granddaughter feels the patient would benefit from longterm placement and has not been able to find a place for her on her own. PAST MEDICAL HISTORY: 1. Chronic hypertension. 2. Anxiety/depression. 3. Dyslipidemia. PAST SURGICAL HISTORY: 1. Appendectomy 2. Hysterectomy 3. Left knee meniscectomy SOCIAL HISTORY: Smokes about 1 ppd when she can get cigarettes. Denies alcohol use. Lives alone in an apartment. and FAMILY HISTORY: Noncontributory ALLERGIES: Please see below. REVIEW OF SYSTEMS: CONSTITUTIONAL: Denies fevers, chills, night sweats, fatigue, unexpected change in weight. HEENT: Denies change in vision, change in hearing. CARDIOVASCULAR: Denies chest pain, palpitations, shortness of breath, lightheadeness. RESPIRATORY: Denies dyspnea, cough, wheezing. GASTROINTESTINAL: Denies nausea, vomiting, abdominal pain, diarrhea, consitpation, blood in stool. GENITOURINARY: Denies dysuria, urinary frequency, urinary urgency. SKIN: Denies rash, lesions. MUSCULOSKELETAL: Denies joint pain or muscle aches. NEUROLOGICAL: Denies headache, dizziness, weakness. PSYCHIATRIC: Endorses anxiety. HOME MEDICATIONS: Please see below. PHYSICAL EXAMINATION: VITAL SIGNS: See below GENERAL: Alert, comfortable, in no acute distress HEENT: Normocephalic, atraumatic, PERRLA, EOMI, sclera anicteric, moist mucous membranes NECK: Supple, trachea midline, no lymphadenopathy, no JVD CARDIOVASCULAR: Regular rate and rhythm, normal S1 and S2. No murmurs, rubs, or gallops RESPIRATORY: Clear to auscultation bilaterally with equal air entry bilaterally. No wheezing, rhonchi, or rales. ABDOMEN: Soft, nontender, nondistended, bowel sounds present, no masses or hepatosplenomegaly appreciated EXTREMITIES: No cyanosis or edema. Pulses 2+/4 in bilateral upper and lower extremities SKIN: [place], warm, dry NEUROLOGIC: Alert and oriented to person, place, month. Cranial nerves 2-12 grossly intact. No focal deficits appreciated PSYCHIATRIC: Answers most questions appropriately but occasionally starts saying something unrelated to the question LABORATORY DATA: See below. MICROBIOLOGY: Please see below. ASSESSMENT: 88 year old female who presents with asymptomatic uncontrolled hyper tension and anxiety secondary to medication noncompliance PLAN: 1. Uncontrolled asymptomatic hypertension - Restart home lisinopril and adjust as necessary for adequate control - Monitor BMP daily 2. Anxiety/Depression - restart home paxil and prn xanax 3. Hx of PE - dx 07/17/19, started on eliquis but pt has not been fully compliant - unclear if this was provoked vs. unprovoked, will need at least 6 months of treatment with anticoagulant. - restart home eliquis 4. Iron deficiency anemia - restart home iron supplement 5. Dyslipidemia - restart home simvastatin 6. Tobacco use - declines nicotine patch 7. Medical noncompliance due to difficulty caring for her self - PFS consult for potential placement - Unclear if the patient has a health care proxy DVT prophylaxis: on Eliquis GI prophylaxis: not currently indicated Disposition: admit to med/surg for blood pressure stabilization, pending potential longterm placement Attending attestation: I evaluated and examined the patient in person; I discussed the care with Resident in detail and agree with the plan above. Vital Signs Vital Signs Date Time Temp Pulse Resp B/P (MAP) Pulse Ox O2 Delivery O2 Flow Rate FiO2 11/24/19 13:20 98.4 100 20 189/93 (125) 94 Room Air Laboratory Data Labs 24H Laboratory Tests 2 5/4/20 13:59: Nucleated Red Blood Cells % (auto) 0.0, Urine Color YELLOW, Urine Appearance CLEAR, Urine pH 7.0, Urine Specific [place] 1.013, Urine Protein NEGATIVE, Urine Glucose (UA) NEGATIVE, Urine Ketones NEGATIVE, Urine Blood NEGATIVE, Urine Nitrite NEGATIVE, Urine Bilirubin NEGATIVE, Urine Urobilinogen 0.2, Urine Leukocyte Esterase NEGATIVE, Urine WBC (Auto) 1, Urine RBC (Auto) 2, Urine Hyaline Casts (Auto) 0, Urine Bacteria (Auto) NEGATIVE, Urine Squamous Epithelial Cells 1, Urine Amorphous Sediment SMALLH, Urine Mucus (Auto) SMALL, Urine Sperm (Auto) , Anion Gap 7L, Glomerular Filtration Rate > 60.0, Calcium Level 9.9, Total Bilirubin 0.3, Direct Bilirubin < 0.1, Aspartate Amino Transf (AST/SGOT) 12, Alanine Aminotransferase (ALT/SGPT) 17, Alkaline Phosphatase 87, Total Protein 6.8, Albumin 3.5, Albumin/Globulin Ratio 1.06, Thyroid Stimulating Hormone (TSH) 0.786, Salicylates Level 2.4L, Acetaminophen Level < 2.0L, Ethyl Alcohol Level < 0.003 CBC/BMP Laboratory Tests 11/24/19 13:59 Home Medications Scheduled Apixaban (Eliquis) 2.5 Mg Tablet, 2.5 MG PO BID Ferrous Sulfate (Ferrous Sulfate) 325 Mg Tablet.dr, 325 MG PO DAILY Lisinopril (Lisinopril) 20 Mg Tab, 20 MG PO DAILY Paroxetine HCl (Paroxetine HCl) 40 Mg Tab, 40 MG PO DAILY Simvastatin (Simvastatin) 40 Mg Tablet, 40 MG PO DAILY Scheduled PRN Alprazolam (Alprazolam) 0.5 Mg Tab, 0.5 MG PO TID PRN for ANXIETY Allergies Coded Allergies: No Known Allergies (Unverified , 07/22/19) A-FIB/CHADSVASC A-FIB History Current/History of A-Fib/PAF?: No JENNIFER BENTON D.O. November 24, 2019 18:27 MINNIE SHORT MD November 25, 2019 19:58
--- NOTE | 2019-11-24 18:41 | ECGEPIP ---
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
[2019-11-24 19:36] VITALS: BP 140/66
[2019-11-24] MEDS: APIXABAN 2.5 MG TAB (ELIQUIS) PO SCH (20:06)
[2019-11-24 22:00] VITALS: BP 143/61
[2019-11-24 23:08] LABS: AMPHETAMINES LEVEL URINE NEGATIVE (NEGATIVE); BARBITURATES URINE NEGATIVE (NEGATIVE); BENZODIAZEPINES URINE NEGATIVE (NEGATIVE); CANNABINOIDS URINE NEGATIVE (NEGATIVE); COCAINE METABOLITE URINE NEGATIVE (NEGATIVE); METHADONE URINE NEGATIVE (NEGATIVE); OPIATES URINE NEGATIVE (NEGATIVE); PHENCYCLIDINE URINE NEGATIVE (NEGATIVE)
[2019-11-25 06:00] VITALS: BP 139/76
[2019-11-25 06:51] LABS: BLOOD UREA NITROGEN 24 MG/DL (7-18); CALCIUM LEVEL 8.9 MG/DL (8.8-10.2); CARBON DIOXIDE LEVEL 27 MEQ/L (21-32); CHLORIDE LEVEL 111 MEQ/L (98-107); CREATININE FOR GFR 0.91 MG/DL (0.55-1.30); GLOMERULAR FILTRATION RATE > 60.0 (>32); GLUCOSE, FASTING 92 MG/DL (70-100); MAGNESIUM LEVEL 2.2 MG/DL (1.8-2.4); POTASSIUM SERUM 4.1 MEQ/L (3.5-5.1); SODIUM LEVEL 143 MEQ/L (136-145)
[2019-11-25] MEDS: APIXABAN 2.5 MG TAB (ELIQUIS) PO SCH ×2 (08:32→20:43)
[2019-11-25] MEDS: lisinopriL 20 MG TAB PO SCH (08:32)
[2019-11-25] MEDS: SIMVASTATIN 40 MG TAB PO SCH (08:32)
[2019-11-25] MEDS: FERROUS SULFATE 325MG TAB PO SCH (08:32)
[2019-11-25] MEDS: PARoxetine 20 MG TAB PO SCH (08:32)
[2019-11-25] MEDS: ALPRAZolam 0.5 MG TAB PO PRN ×2 (08:32→20:49)
--- NOTE | 2019-11-25 11:26 | IPNPDOC ---
Text Note Date of Service The patient was seen on 11/25/19. NOTE SUBJECTIVE: Izzy is seen examined today, sitting up comfortably on the edge of the bed. She states she is still feeling some anxiety. This is improved when she gets a dose of Xanax. Otherwise, she has no new complaints. OBJECTIVE: PHYSICAL EXAMINATION: VITAL SIGNS: See below GENERAL: Alert, comfortable, in no acute distress HEENT: Normocephalic, atraumatic, sclera anicteric, moist mucous membranes NECK: Supple, trachea midline, no lymphadenopathy CARDIOVASCULAR: Regular rate and rhythm, normal S1 and S2. No murmurs, rubs, or gallops RESPIRATORY: Clear to auscultation bilaterally with equal air entry bilaterally. No wheezing, rhonchi, or rales. ABDOMEN: Soft, nontender, nondistended, bowel sounds present, no masses or hepatosplenomegaly appreciated EXTREMITIES: No cyanosis or edema. SKIN: no rash NEUROLOGIC: Alert and oriented to person, place, month. No focal deficits appreciated PSYCHIATRIC: Answers most questions appropriately but occasionally starts saying something unrelated to the question ASSESSMENT: 88 year old female who presents with asymptomatic uncontrolled hypertension and anxiety secondary to medication noncompliance PLAN: 1. Hypertension - elevated on admission due to medication noncompliance - continue home lisinopril and adjust as necessary for adequate control 2. Anxiety/Depression - continue home paxil and prn xanax 3. Hx of PE - dx 07/17/19, started on eliquis but pt has not been fully compliant - unclear if this was provoked vs. unprovoked, will need at least 6 months of treatment with anticoagulant. - continue eliquis 4. Iron deficiency anemia - continue home iron supplement 5. Dyslipidemia - continue home simvastatin 6. Tobacco use - declines nicotine patch 7. Medical noncompliance due to difficulty caring for her self - PFS consult for potential placement - Unclear if the patient has a health care proxy DVT prophylaxis: on Eliquis GI prophylaxis: not currently indicated Disposition: pending potential retirement placement Attending attestation: I evaluated and examined the patient in person; I discussed the care with Resident in detail and agree with the plan above. VS,Fishbone, I+O VS, Fishbone, I+O Laboratory Tests 11/24/19 13:59 11/25/19 06:03 Vital Signs Date Time Temp Pulse Resp B/P (MAP) Pulse Ox O2 Delivery O2 Flow Rate FiO2 11/25/19 08:32 144/61 11/25/19 06:00 97.9 76 18 97 Room Air I&O- Last 24 Hours up to 6 AM 11/25/19 05:59 Intake Total 100 ml Balance 100 ml JENNIFER BENTON D.O. November 25, 2019 11:26 MINNIE SHORT MD November 25, 2019 20:00
[2019-11-25 14:00] VITALS: BP 140/72
[2019-11-25 22:00] VITALS: BP 162/81
[2019-11-26 06:00] VITALS: BP 158/76
[2019-11-26 07:15] LABS: BLOOD UREA NITROGEN 22 MG/DL (7-18); CALCIUM LEVEL 9.2 MG/DL (8.8-10.2); CARBON DIOXIDE LEVEL 28 MEQ/L (21-32); CHLORIDE LEVEL 111 MEQ/L (98-107); CREATININE FOR GFR 0.89 MG/DL (0.55-1.30); GLOMERULAR FILTRATION RATE > 60.0 (>32); GLUCOSE, FASTING 82 MG/DL (70-100); POTASSIUM SERUM 4.2 MEQ/L (3.5-5.1); SODIUM LEVEL 143 MEQ/L (136-145)
[2019-11-26] MEDS: PARoxetine 20 MG TAB PO SCH (09:40)
[2019-11-26] MEDS: SIMVASTATIN 40 MG TAB PO SCH (09:40)
[2019-11-26] MEDS: ALPRAZolam 0.5 MG TAB PO PRN (09:40)
[2019-11-26] MEDS: FERROUS SULFATE 325MG TAB PO SCH (09:40)
[2019-11-26] MEDS: APIXABAN 2.5 MG TAB (ELIQUIS) PO SCH ×2 (09:40→21:13)
[2019-11-26] MEDS: lisinopriL 20 MG TAB PO SCH (09:40)
--- NOTE | 2019-11-26 11:42 | IPNPDOC ---
Text Note Date of Service The patient was seen on 11/26/19. NOTE SUBJECTIVE: The patient is seen examined today, laying comfortably in bed. She states her anxiety is improved and she is feeling better. She has no new complaints. OBJECTIVE: PHYSICAL EXAMINATION: VITAL SIGNS: See below GENERAL: Alert, comfortable, in no acute distress HEENT: Normocephalic, atraumatic, sclera anicteric, moist mucous membranes NECK: Supple, trachea midline, no lymphadenopathy CARDIOVASCULAR: Regular rate and rhythm, normal S1 and S2. No murmurs, rubs, or gallops RESPIRATORY: Clear to auscultation bilaterally with equal air entry bilaterally. No wheezing, rhonchi, or rales. ABDOMEN: Soft, nontender, nondistended, bowel sounds present, no masses or hepat osplenomegaly appreciated EXTREMITIES: No cyanosis or edema. SKIN: no rash NEUROLOGIC: Alert and oriented to person, place, month. No focal deficits appreciated PSYCHIATRIC: Answers most questions appropriately but occasionally starts saying something unrelated to the question ASSESSMENT: 88 year old female who presents with asymptomatic uncontrolled hypertension and anxiety secondary to medication noncompliance PLAN: 1. Hypertension - elevated on admission due to medication noncompliance - continue home lisinopril and adjust as necessary for adequate control 2. Anxiety/Depression - continue home paxil and prn xanax 3. Hx of PE - dx 07/17/19, started on eliquis but pt has not been fully compliant - unclear if this was provoked vs. unprovoked, will need at least 6 months of treatment with anticoagulant. - continue eliquis 4. Iron deficiency anemia - continue home iron supplement 5. Dyslipidemia - continue home simvastatin 6. Tobacco use - declines nicotine patch 7. Medical noncompliance due to difficulty caring for her self - PFS consult for potential placement - Unclear if the patient has a health care proxy 8. Gait instability - pt requires a rolling walker for gait instability DVT prophylaxis: on Eliquis GI prophylaxis: not currently indicated Disposition: home vs placement, PFS to speak to granddaughter about medicaid application Attending attestation: I evaluated and examined the patient in person; I discussed the care with Resident in detail and agree with the plan above. VS,Fishbone, I+O VS, Fishbone, I+O Laboratory Tests 11/26/19 05:47 Vital Signs Date Time Temp Pulse Resp B/P (MAP) Pulse Ox O2 Delivery O2 Flow Rate FiO2 11/26/19 09:40 132/64 11/26/19 06:00 98.3 63 20 91 Room Air I&O- Last 24 Hours up to 6 AM 11/26/19 06:00 Intake Total 1600 ml Balance 1600 ml JENNIFER BENTON D.O. November 26, 2019 11:42 MINNIE SHORT MD November 28, 2019 16:12
[2019-11-26 14:00] VITALS: BP 160/74
[2019-11-26] MEDS ORDERED: RAMELTEON 8 MG TAB (ROZEREM) PO SCH (21:00)
[2019-11-26 22:00] VITALS: BP 133/69
[2019-11-27] MEDS: ALPRAZolam 0.5 MG TAB PO PRN (00:31)
[2019-11-27 06:00] VITALS: BP 142/64
[2019-11-27 06:50] LABS: CREATININE FOR GFR 0.97 MG/DL (0.55-1.30); GLOMERULAR FILTRATION RATE 57.7 (>32); POTASSIUM SERUM 3.8 MEQ/L (3.5-5.1)
[2019-11-27] MEDS: APIXABAN 2.5 MG TAB (ELIQUIS) PO SCH (08:34)
[2019-11-27] MEDS: PARoxetine 20 MG TAB PO SCH (08:34)
[2019-11-27] MEDS: FERROUS SULFATE 325MG TAB PO SCH (08:34)
[2019-11-27] MEDS: SIMVASTATIN 40 MG TAB PO SCH (08:34)
[2019-11-27 08:37] VITALS: BP 113/47
[2019-11-27] MEDS: lisinopriL 20 MG TAB PO SCH (08:37)
--- NOTE | 2019-11-27 11:54 | DS.PDOC ---
Discharge Summary General Date of Admission November 24, 2019 at 17:20 Date of Discharge 11/27/2019 Attending Physician: MINNIE SHORT MD Discharge Summary PROCEDURES PERFORMED DURING STAY: None. ADMITTING DIAGNOSES: 1. Hypertension 2. Anxiety and depression. 3. History of pulmonary embolus. 4. Iron deficiency anemia. 5. Dyslipidemia. 6. Tobacco use DISCHARGE DIAGNOSES: 1. Hypertension 2. Anxiety and depression. 3. History of pulmonary embolus. 4. Iron deficiency anemia. 5. Dyslipidemia. 6. Tobacco use COMPLICATIONS/CHIEF COMPLAINT: Hypertensive Urgency Physical Deconditioning. HISTORY OF PRESENT ILLNESS: Yvonne is an 88-year-old female who presented to the ED due to increased anxiety. She states she is not sure who her PCP is and believes she was discharged from her PCP due to not making her appointments. She is unsure exactly what medications she takes at home, but she knows she has anxiety medication to take when she needs it. When prompted, she remembers that she takes a medication for her blood pressure and for a blood clot that she had in her lung. She states she only took one pill this morning and she is not sure which one it was. She states she feels well currently, her anxiety has improved. She has not other complaints. The patient's granddaughter also spoke with the ED provider. She is concerned that the patient cannot take care of herself alone at home anymore. She feels the patient is not properly taking her medications and is overusing her xanax. The granddaughter feels the patient would benefit from [place] [facility] placement and has not been able to find a place for her on her own. HOSPITAL COURSE: She was recommended to the hospital and restarted on all her home medications. Her anxiety subsequently began to improve. She was able to set her up with home care and her granddaughters agreed to pursue Medicaid so that she could potentially go to an assisted living facility. DISCHARGE MEDICATIONS: Please see below. ALLERGIES: Please see below. PHYSICAL EXAMINATION ON DISCHARGE: VITAL SIGNS: Please see below. GENERAL: Alert, comfortable, in no acute distress HEENT: Normocephalic, atraumatic, sclera anicteric, moist mucous membranes NECK: Supple, trachea midline, no lymphadenopathy CARDIOVASCULAR: Regular rate and rhythm, normal S1 and S2. No murmurs, rubs, or gallops RESPIRATORY: Clear to auscultation bilaterally with equal air entry bilaterally. No wheezing, rhonchi, or rales. ABDOMEN: Soft, nontender, nondistended, bowel sounds present, no masses or hepatosplenomegaly appreciated EXTREMITIES: No cyanosis or edema. SKIN: no rash NEUROLOGIC: Alert and oriented to person, place, month. No focal deficits appreciated PSYCHIATRIC: Answers most questions appropriately but occasionally starts saying something unrelated to the question LABORATORY DATA: Please see below. IMAGING: None. PROGNOSIS: Fair ACTIVITY: As tolerated. DIET: As tolerated DISCHARGE PLAN. Home with home care DISCHARGE INSTRUCTIONS: 1. Follow-up with your PCP in 7-10 days 2. Take all your medications as prescribed 3. If your symptoms return or your condition worsens, please call your PCP or return to the ED for further evaluation. ITEMS TO FOLLOWUP ON ON OUTPATIENT: 1. Management of depression and anxiety DISCHARGE CONDITION: Stable. TIME SPENT ON DISCHARGE: Greater than 35 minutes. Attending attestation: I evaluated and examined the patient in person; I discussed the care with Resident in detail and agree with the plan above. Vital Signs/I&Os Vital Signs Date Time Temp Pulse Resp B/P (MAP) Pulse Ox O2 Delivery O2 Flow Rate FiO2 11/27/19 08:37 113/47 11/27/19 06:00 97.3 56 18 93 11/26/19 14:00 Room Air I&O- Last 24 Hours up to 6 AM 11/27/19 06:00 Intake Total 420 ml Output Total 0 ml Balance 420 ml Laboratory Data Labs 24H Laboratory Tests 2 11/27/19 05:48: Anion Gap 6L, Glomerular Filtration Rate 57.7, Calcium Level 9.0 CBC/BMP Laboratory Tests 11/27/19 05:48 Discharge Medications Scheduled Apixaban (Eliquis) 2.5 Mg Tablet, 2.5 MG PO BID Ferrous Sulfate (Ferrous Sulfate) 325 Mg Tablet.dr, 325 MG PO DAILY Lisinopril (Lisinopril) 20 Mg Tab, 20 MG PO DAILY Paroxetine HCl (Paroxetine HCl) 40 Mg Tab, 40 MG PO DAILY Simvastatin (Simvastatin) 20 Mg Tablet, 1 TAB PO QPM Scheduled PRN Alprazolam (Alprazolam) 0.5 Mg Tab, 0.5 MG PO TID PRN for ANXIETY, (Reported) Allergies Coded Allergies: No Known Allergies (Unverified , 07/22/19) JENNIFER BENTON D.O. November 27, 2019 11:54 MINNIE SHORT MD November 28, 2019 16:18
[2019-11-27 14:00] VITALS: BP 140/60
[2019-11-27] MEDS ORDERED: PARO40TA2 PO (16:04)
[2019-11-27] MEDS ORDERED: ELIQ2.5T PO (16:04)
[2019-11-27] MEDS ORDERED: FERR325T3 PO (16:04)
[2019-11-27] MEDS ORDERED: SIMV20TA22 PO (16:04)
[2019-11-27] MEDS ORDERED: LISI-538 PO (16:04)
[2019-11-27] MEDS ORDERED: RAMELTEON 8 MG TAB (ROZEREM) PO PRN (21:00)
== END 2019-11-27 15:00 | disposition home or self-care (01) | DRG 305 ==
LOC: EDBD 13:05 → M ED 13:05 → M ED INP 17:20 → ENRESERV 19:00 → M MSPAV 19:36
PROVIDERS: ADMIT Internal Medicine; ATTEND Internal Medicine
DX: I10 Essential (primary) hypertension (principal); F41.9 Anxiety disorder, unspecified; F32.9 Major depressive disorder, single episode, unspecified; E78.5 Hyperlipidemia, unspecified; D50.9 Iron deficiency anemia, unspecified; R26.89 Other abnormalities of gait and mobility; F17.210 Nicotine dependence, cigarettes, uncomplicated; Z86.711 Personal history of pulmonary embolism; Z79.01 Long term (current) use of anticoagulants; Z91.14 Patient's other noncompliance with medication regimen; Z79.899 Other long term (current) drug therapy; Z74.2 Need for assistance at home and no other household member able to render care; Z60.2 Problems related to living alone